=== PATIENT | male | born 1955 | race Caucasian/White ===

== ENCOUNTER 2016-07-27 17:19 | Inpatient (IN) | payer OTHER ==
[~2016-07-27] VITALS: Ht 188 cm; Wt 96.0 kg
[~2016-07-27 17:19] MED LIST: ASPI-535 PO; CARV12.579 PO; CLOP75TA27 PO; DULO30CA45 PO; IBUP800T25 PO; ISOS30TA PO; LANT3I SC; OLME40TA14 PO; PRAV40TA76 PO; SITA1TAB7 PO
[2016-07-27] MEDS ORDERED: KETOROLAC 15 MG INJ IV STA (18:01)
[2016-07-27 18:25] LABS: BASOPHIL # 0.1 10^3/ul (0.0-0.1); BASOPHILS % 0.9 % (0.0-2.0); EOSINOPHILS # 0.2 10^3/ul (0.0-0.5); EOSINOPHILS % 2.8 % (0.0-7.0); HEMATOCRIT 50.7 % (42.0-52.0); HEMOGLOBIN 17.6 g/dl (14.0-18.0); LYMPHOCYTES # 2.2 10^3/ul (0.8-2.9); LYMPHOCYTES % 27.5 % (15.0-51.0); MEAN CORPUSCULAR HGB CONC 34.8 g/dl (32.0-37.0); MEAN CORPUSCULAR VOLUME 97.8 fl (82.0-101.0); MEAN PLATELET VOLUME 8.7 fl (7.4-10.4); MONOCYTE # 0.4 10^3/ul (0.3-0.9); MONOCYTES % 5.5 % (0.0-11.0); NEUTROPHILS % 63.3 % (39.0-77.0); PLATELET COUNT 196 10^3/UL (140-440); RED BLOOD COUNT 5.18 10^6/ul (4.70-6.10); RED CELL DISTRIBUTION WIDTH 12.9 % (11.5-14.5); UNCORRECTED WBC 7.9 10^3/ul (4.8-10.8); WHITE BLOOD COUNT 7.9 10^3/ul (4.8-10.8)
[2016-07-27 18:28] LABS: CONDITION 1
[2016-07-27] MEDS ORDERED: ALPRAZOLAM 0.25 MG TAB PO ONE (18:30)
[2016-07-27] MEDS ORDERED: NITROGLYCERIN (SL) 0.4 MG TAB SL ONE (18:30)
[2016-07-27] MEDS ORDERED: ENALAPRILAT 1.25 MG INJ IV ONE (18:30)
[2016-07-27] MEDS ORDERED: ASPIRIN 81 MG TAB PO ONE (18:30)
--- NOTE | 2016-07-27 18:35 | RADRPT ---
PROCEDURE: XR Chest. CLINICAL INDICATION: Abdominal packet TECHNIQUE: Single frontal view of the chest was obtained COMPARISON: Chest x-ray 05/04/2014. FINDINGS: Heart is enlarged. Monitoring electrodes and draped across the chest. The lungs are clear. There is no pleural effusion. The bony elements are intact. No changes noted compared to the prior study . IMPRESSION: 1. Mild cardiomegaly. 2. No evidence of active cardiopulmonary disease. Stable chest compared to 05/04/2014. RPTAT:AAJJ Physician Korina Date Time Electronically viewed and signed by Jimbo Alvarado Physician on 07/27/2016 18:34 JM/
[2016-07-27 18:36] LABS: ALBUMIN 4.4 g/dl (3.3-4.9); INR 0.85; PROTIME 11.6 Sec (12.2-14.2); PT RATIO 0.9
[2016-07-27 18:37] LABS: POTASSIUM 5.1 mmol/L (3.5-5.1)
[2016-07-27 18:39] LABS: ALBUMIN/GLOBULIN RATIO 1.46; BILIRUBIN,INDIRECT 0.4 mg/dl (0-1.1); BILIRUBIN,TOTAL 0.4 mg/dl (0.2-1.3); CREATININE 1.12 mg/dl (0.61-1.24); TOTAL PROTEIN 7.4 g/dl (6.1-8.1)
[2016-07-27 18:40] LABS: CALCIUM 8.8 mg/dl (8.4-10.2)
[2016-07-27 18:42] VITALS: TEMP 98.1
[2016-07-27 18:49] LABS: TROPONIN-I 0.056 ng/ml (0.00-0.12)
[2016-07-27] MEDS ORDERED: PRAV10TA43 PO (19:34)
[2016-07-27] MEDS ORDERED: METF-382 PO (19:35)
[2016-07-27] MEDS ORDERED: VALS160T20 PO (19:35)
--- NOTE | 2016-07-27 19:37 | ERA ---
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 MILD SOB . NO DIAPHORESIS HPI 61-year-old man presents with left-sided pressure-like chest pain beginning at home while at rest and hypertension. He states his chest pain occurs on a regular basis usually associated with hypertension sometimes multiple times per week although today's discomfort was unusual in that it lasted longer and was not relieved with nitroglycerin administered at home. Patient does have a history of IN and multiple previous coronary artery stents placed. Patient denies coughing, no fevers or chills, no dizziness or loss of consciousness, no shortness of breath, no vomiting or diarrhea. ROS All systems reviewed and are negative except as per history of present illness. Medications Home Meds Reported Medications Pravastatin Sodium* (Pravastatin Sodium*) 40 Mg Tablet, 40 MG PO DAILY, TAB 05/05/14 Olmesartan Medoxomil (Benicar) 40 Mg Tablet, 40 MG PO DAILY, TAB 05/05/14 Isosorbide Mononitrate* (Imdur*) 30 Mg Tab.sr.24h, 30 MG PO DAILY, TAB 05/05/14 Clopidogrel Bisulfate (Clopidogrel) 75 Mg Tablet, 75 MG PO DAILY, TAB 05/04/14 Insulin Glargine* (Lantus*) 100 Unit/Ml Soln, 30 UNIT SC HS, EA 05/04/14 Sitagliptin Phos-Metformin Hcl (Janumet) 50-1,000 Mg Tablet, 1 TAB PO BID, TAB 05/04/14 Ibuprofen* (Ibuprofen*) 800 Mg Tab, 800 MG PO Q6H Y for PAIN, TAB 05/04/14 Duloxetine Hcl* (Cymbalta*) 30 Mg Capsule.dr, 30 MG PO DAILY, CAP 05/04/14 Carvedilol* (Carvedilol*) 12.5 Mg Tablet, 12.5 MG PO BID, TAB 05/04/14 Aspirin Ec (Aspir 81) 81 Mg Tablet.dr, 81 MG PO DAILY, TAB 05/04/14 Allergies Allergies: Coded Allergies: No Known Drug Allergy (Verified Allergy, Unknown, 07/27/16) PMhx/Soc Hypertension, coronary artery disease with previous coronary artery stenting, IN , diabetes mellitus, obesity, smoking History of Surgery: Yes Anesthesia Reaction: No Hx Neurological Disorder: No Hx Respiratory Disorders: No Hx Cardiac Disorders: Yes (HTN) Hx Psychiatric Problems: No Hx Miscellaneous Medical Probl: Yes (DM) Hx Alcohol Use: Yes Hx Substance Use: No Hx Tobacco Use: Yes Smoking Status: Current every day smoker FmHx Family History: diabetes Physical Exam Vitals Vital Signs Date Time Temp Pulse Resp B/P Pulse Ox O2 Delivery O2 Flow Rate FiO2 07/27/16 18:52 99 20 143/96 07/27/16 18:42 98.1 16 157/109 97 Room Air 07/27/16 17:26 98.1 100 20 202/121 98 Physical Exam GENERAL: Well-developed, well-nourished, well-hydrated, in no apparent distress , looks nontoxic in appearance HEENT: Moist mucous membranes, pink conjunctiva, no cervical spine tenderness or step-off deformities, no goiter, no jaundice or icterus, extraocular movements intact without pain. No submandibular induration, and no pharyngeal erythema NEURO: Alert and oriented 3, cranial nerves II through XII intact bilaterally, pupils equal round reactive to light, no focal deficits or facial asymmetry, sensation intact distally Strength 5/5 in upper and lower extremities bilaterally CARDIAC: Tachycardic and regular, no murmurs rubs or gallops LUNGS: Clear bilaterally no wheezing crackles or stridor ABDOMEN: Soft nontender, no guarding, no rigidity, no rebound, no psoas sign no obturator sign. Normoactive bowel sounds SKIN: Warm and dry to touch, no abrasions, contusions, or hematomas, no lacerations, no ecchymosis, no target lesions, and without ulcers EXTREMITIES: No clubbing cyanosis or edema, calves are bilaterally symmetrical, no Homans sign, no popliteal cord sign. Distal pulses equal and bilateral PSYCH: Normal affect without agitation or irritability Result Diagram: 07/27/16 1800 07/27/16 1800 Results 24 hrs Laboratory Tests Test 07/27/16 18:00 Alanine Aminotransferase (ALT/SGPT) 17IU/L Albumin 4.4g/dl Albumin/Globulin Ratio 1.46 Alkaline Phosphatase 75IU/L Anion Gap 20 Aspartate Amino Transf (AST/SGOT) 47IU/L B-Type Natriuretic Peptide 610PG/ML Basophils # 0.110^3/ul Basophils % 0.9% Blood Urea Nitrogen 23mg/dl Calcium Level 8.8mg/dl Carbon Dioxide Level 25mmol/L Chloride Level 100mmol/L Creatinine 1.12mg/dl Direct Bilirubin 0.00mg/dl Eosinophils # 0.210^3/ul Eosinophils % 2.8% Globulin 3.00g/dl Glucose Level 333mg/dl Hematocrit 50.7% Hemoglobin 17.6g/dl INR International Normalized Ratio 0.85 Indirect Bilirubin 0.4mg/dl Lipase 106U/L Lymphocytes # 2.210^3/ul Lymphocytes % 27.5% Mean Corpuscular Hemoglobin 34.0pg Mean Corpuscular Hemoglobin Concent 34.8g/dl Mean Corpuscular Volume 97.8fl Mean Platelet Volume 8.7fl Monocytes # 0.410^3/ul Monocytes % 5.5% Neutrophils # 5.010^3/ul Neutrophils % 63.3% Nucleated Red Blood Cells # 0.010^3/ul Nucleated Red Blood Cells % 0.0/100WBC Platelet Count 75919^3/UL Potassium Level 5.1mmol/L Prothrombin Time 11.6Sec Prothrombin Time Ratio 0.9 Red Blood Count 5.1810^6/ul Red Cell Distribution Width 12.9% Sodium Level 140mmol/L Total Bilirubin 0.4mg/dl Total Protein 7.4g/dl Troponin I 0.056ng/ml White Blood Count 7.910^3/ul Current Medications Medications (Trade) Dose Ordered Sig/Liudmila Route PRN Reason Start Time Stop Time Status Last Admin Dose Admin Ketorolac Tromethamine (Toradol) 15 mg ONCE STAT IV 07/27/16 18:01 07/27/16 18:03 DC 07/27/16 18:35 Aspirin (Aspirin) 324 mg ONCE ONCE PO 07/27/16 18:30 07/27/16 18:31 DC 07/27/16 18:33 Enalaprilat (Vasotec Iv) 1.25 mg ONCE ONCE IV 07/27/16 18:30 07/27/16 18:31 DC 07/27/16 18:37 Nitroglycerin (Nitroglycerin (Sl Tab) 0.4 Mg) 1 tab ONCE ONCE SL 07/27/16 18:30 07/27/16 18:31 DC Alprazolam (Xanax) 0.5 mg ONCE ONCE PO 07/27/16 18:30 07/27/16 18:31 DC Procedures/MDM IV line was established patient was placed on cardiac catheterization technologist rhythm strip revealed a sinus tachycardia at 100 bpm with upright P and T waves. Patient was afebrile. Patient was hypertensive and for his symptoms I administered enalapril 1.25 mg IV, Toradol 15 mg IV, aspirin 324 mg p.o., alprazolam 0.5 mg p.o., and nitroglycerin 0.4 mg sublingual EKG performed, read by me revealed a sinus tachycardia 104 bpm, normal axis, narrow QRS complex, no concerning ST elevations or depressions noted. One AP view of the chest performed, read by me reveals no acute infiltrates, normal mediastinum, sharp costophrenic and cardiac borders, no air under the diaphragm. Otherwise unremarkable chest x-ray. CBC was unremarkable, blood sugar elevated at 333, liver function tests were normal, troponin was negative. Patient will be admitted to telemetry setting for continued medical management cardiology consultation. Departure Diagnosis: Primary Impression: Chest pain Qualified Code: R07.9 - Chest pain, unspecified type Additional Impressions: Hypertension Qualified Code: I10 - Essential hypertension Hyperglycemia Condition: RADHA Price MD Jul 27, 2016 19:37
--- NOTE | 2016-07-27 20:27 | HP ---
Date/Time of Note Date/Time of Note DATE: 07/27/16 TIME: 20:10 Assessment/Plan VTE Prophylaxis VTE Prophylaxis Intervention: LMWH Lines/Catheters IV Catheter Type (from Nrs): Saline Lock Assessment/Plan Assessment/Plan PROBLEMS 1. Chest pain r/o ACS 2. Uncontrolled Diabetes type 2 3. Accelerated HTN 4. Known Multivessel CAD s/p multiple PCI in the past 5. Ongoing tobacco abuse 6. Dyslipidemia PLAN: admit telemetry Complete ACS r/o with cardiac enzymes / 2D echo / cardiology consult. Improve BP control / resume home meds / titrate / add BB and also PRNs Carb controlled diet / SSI / home lantus / hold metformin in anticipation of possible cardiology intervention Escalate statin therapy / continue Plavix and ASA Tobacco cessation counselling done and will continue to be reinforced throughout hospitalization. Pain control / supportive care PROPHYLAXIS: Pepcid / Lovenox Eval time: 45mins HPI/ROS Admit Date/Time Admit Date/Time 07/27/16 Hx of Present Illness PRESENTING COMPLAINT: chest pain HISTORY OF PRESENTING COMPLAINT: 61 yo M with a hx of HTN and CAD s/p multiple PCI in the past who presents with intermittent L sided chest pain that has prgoressed to constant and is associated with some numbness and occasional SOB that has slowly been worsening and today's episode did not respond to nitroglycerin therapy and so he came to be seen. he is currently pain free however. denied fever, passing out or cough. ROS 12 point review if systems was done and pertinent findings are as noted. PMH/Family/Social Past Medical History Medical History: diabetes, hypertension Family History Significant Family History: heart disease, hypertension Social History Alcohol Use: occasionally Smoking Status: Current every day smoker Drug Use: none Exam/Review of Systems Vital Signs Vitals VS - Last 72 Hours, by Label Date Time Temp Pulse Resp B/P Pulse Ox O2 Delivery O2 Flow Rate FiO2 07/27/16 18:52 99 20 143/96 07/27/16 18:42 98.1 16 157/109 97 Room Air 07/27/16 17:26 98.1 100 20 202/121 98 Vital Signs Date Time Temp Pulse Resp B/P Pulse Ox O2 Delivery O2 Flow Rate FiO2 07/27/16 18:52 99 20 143/96 07/27/16 18:42 98.1 97 Room Air Exam Constitutional: alert, oriented, No distress Head: atraumatic, normocephalic Eyes: PERRL, No icteric ENMT: mucosa pink and moist Neck: non-tender, supple Respiratory: clear to auscultation, normal air movement Cardiovascular: regular rate and rhythm, No murmurs/extra sounds Gastrointestinal: bowel sounds, non-tender, soft Extremities: No edema Neurological: nl speech, nl strength, No confused Skin: No rash or lesions Labs Result Diagram: 07/27/16 1800 07/27/16 1800 Procedures Procedures Laboratory Tests Test 07/27/16 18:00 Alanine Aminotransferase (ALT/SGPT) 17IU/L Albumin 4.4g/dl Albumin/Globulin Ratio 1.46 Alkaline Phosphatase 75IU/L Anion Gap 20 Aspartate Amino Transf (AST/SGOT) 47IU/L B-Type Natriuretic Peptide 610PG/ML Basophils # 0.110^3/ul Basophils % 0.9% Blood Urea Nitrogen 23mg/dl Calcium Level 8.8mg/dl Carbon Dioxide Level 25mmol/L Chloride Level 100mmol/L Creatinine 1.12mg/dl Direct Bilirubin 0.00mg/dl Eosinophils # 0.210^3/ul Eosinophils % 2.8% Globulin 3.00g/dl Glucose Level 333mg/dl Hematocrit 50.7% Hemoglobin 17.6g/dl INR International Normalized Ratio 0.85 Indirect Bilirubin 0.4mg/dl Lipase 106U/L Lymphocytes # 2.210^3/ul Lymphocytes % 27.5% Mean Corpuscular Hemoglobin 34.0pg Mean Corpuscular Hemoglobin Concent 34.8g/dl Mean Corpuscular Volume 97.8fl Mean Platelet Volume 8.7fl Monocytes # 0.410^3/ul Monocytes % 5.5% Neutrophils # 5.010^3/ul Neutrophils % 63.3% Nucleated Red Blood Cells # 0.010^3/ul Nucleated Red Blood Cells % 0.0/100WBC Platelet Count 29266^3/UL Potassium Level 5.1mmol/L Prothrombin Time 11.6Sec Prothrombin Time Ratio 0.9 Red Blood Count 5.1810^6/ul Red Cell Distribution Width 12.9% Sodium Level 140mmol/L Total Bilirubin 0.4mg/dl Total Protein 7.4g/dl Troponin I 0.056ng/ml White Blood Count 7.910^3/ul ER INTERVENTIONS Medications (Trade) Dose Ordered Sig/Liudmila Route PRN Reason Start Time Stop Time Status Last Admin Dose Admin Ketorolac Tromethamine (Toradol) 15 mg ONCE STAT IV 07/27/16 18:01 07/27/16 18:03 DC 07/27/16 18:35 15 MG Aspirin (Aspirin) 324 mg ONCE ONCE PO 07/27/16 18:30 07/27/16 18:31 DC 07/27/16 18:33 324 MG Enalaprilat (Vasotec Iv) 1.25 mg ONCE ONCE IV 07/27/16 18:30 07/27/16 18:31 DC 07/27/16 18:37 1.25 MG Nitroglycerin (Nitroglycerin (Sl Tab) 0.4 Mg) 1 tab ONCE ONCE SL 07/27/16 18:30 07/27/16 18:31 DC Alprazolam (Xanax) 0.5 mg ONCE ONCE PO 07/27/16 18:30 07/27/16 18:31 DC YANG BRITTON Jul 27, 2016 20:20
[2016-07-27] MEDS ORDERED: ONDANSETRON 4 MG INJ IV PRN (20:30)
[2016-07-27] MEDS ORDERED: morphine 2 MG INJ IV PRN (20:30)
[2016-07-27] MEDS ORDERED: SOD CHLORIDE 0.9% 1,000 ML IV SCH (20:30)
[2016-07-27] MEDS ORDERED: GLUCAGON 1 MG INJ IM PRN (21:00)
[2016-07-27] MEDS ORDERED: GLUCOSE GEL 15 GRAM TUBE BUCCAL PRN (21:00)
[2016-07-27] MEDS ORDERED: GLUCOSE GEL 15 GRAM TUBE PO PRN ×2 (21:00)
[2016-07-27] MEDS ORDERED: DEXTROSE 50% 50 ML SYRINGE IV PRN ×2 (21:00)
[2016-07-27] MEDS: METOPROLOL 25 MG TAB PO SCH (21:20)
[2016-07-27] MEDS: ATORVASTATIN 40 MG TAB PO SCH (21:20)
[2016-07-27] MEDS: INSULIN GLARGINE [LANtus] 3 ML PEN SC SCH (21:22)
[2016-07-27] MEDS: INSULIN ASPART [NOVOLOG] 3 ML PEN SC SCH (21:24)
[2016-07-27] MEDS ORDERED: VALSARTAN 80 MG TAB PO SCH (21:30)
[2016-07-27] MEDS: DOCUSATE SODIUM 100 MG CAP PO SCH (21:32)
[2016-07-27] MEDS: FAMOTIDINE 20 MG TAB PO SCH (21:32)
[2016-07-28] VITALS (11 sets, daily range): BP systolic 131–165; BP diastolic 69–98; PULSE 69–87; RESP 16–22; Ht 188 cm; Wt 96.0 kg
[2016-07-28 00:12] LABS: CK-MB 2.3 ng/ml (0.0-2.4)
[2016-07-28 00:18] LABS: TROPONIN-I 0.231 ng/ml (0.00-0.12)
[2016-07-28] MEDS: ACCUCHECK AT 2AM (Patients on SS coverage) XX SCH (02:00)
[2016-07-28 07:58] LABS: BASOPHILS % 0.6 % (0.0-2.0); EOSINOPHILS # 0.2 10^3/ul (0.0-0.5); EOSINOPHILS % 3.6 % (0.0-7.0); HEMATOCRIT 44.1 % (42.0-52.0); HEMOGLOBIN 15.3 g/dl (14.0-18.0); LYMPHOCYTES # 2.4 10^3/ul (0.8-2.9); LYMPHOCYTES % 35.9 % (15.0-51.0); MEAN CORPUSCULAR HEMOGLOBIN 33.9 pg (29.0-33.0); MEAN CORPUSCULAR HGB CONC 34.8 g/dl (32.0-37.0); MEAN CORPUSCULAR VOLUME 97.6 fl (82.0-101.0); MEAN PLATELET VOLUME 8.2 fl (7.4-10.4); MONOCYTE # 0.6 10^3/ul (0.3-0.9); MONOCYTES % 8.1 % (0.0-11.0); NEUTROPHIL # 3.5 10^3/ul (1.6-7.5); NEUTROPHILS % 51.8 % (39.0-77.0); PLATELET COUNT 167 10^3/UL (140-440); RED BLOOD COUNT 4.52 10^6/ul (4.70-6.10); RED CELL DISTRIBUTION WIDTH 12.7 % (11.5-14.5); UNCORRECTED WBC 6.8 10^3/ul (4.8-10.8); WHITE BLOOD COUNT 6.8 10^3/ul (4.8-10.8)
[2016-07-28 08:06] LABS: CONDITION 1
[2016-07-28 08:08] LABS: ALBUMIN 3.4 g/dl (3.3-4.9); POTASSIUM 4.4 mmol/L (3.5-5.1)
[2016-07-28 08:10] LABS: CREATININE 1.05 mg/dl (0.61-1.24)
[2016-07-28 08:11] LABS: BILIRUBIN,INDIRECT 0.6 mg/dl (0-1.1); BILIRUBIN,TOTAL 0.6 mg/dl (0.2-1.3); CALCIUM 8.8 mg/dl (8.4-10.2); TOTAL PROTEIN 5.7 g/dl (6.1-8.1)
[2016-07-28 08:12] LABS: CHOL/HDL RATIO 5.1 RATIO; MAGNESIUM 1.9 mg/dl (1.7-2.5)
[2016-07-28 08:25] LABS: CK-MB 3.21 ng/ml (0.0-2.4)
[2016-07-28 08:26] LABS: TROPONIN-I 0.457 ng/ml (0.00-0.12)
[2016-07-28 08:41] LABS: THYROID STIMULATING HORMONE 0.711 MIU/L (0.465-4.680)
[2016-07-28] MEDS: VALSARTAN 160 MG TAB PO SCH (08:43)
[2016-07-28] MEDS: DOCUSATE SODIUM 100 MG CAP PO SCH ×2 (08:43→21:00)
[2016-07-28] MEDS: FAMOTIDINE 20 MG TAB PO SCH ×2 (08:43→22:27)
[2016-07-28] MEDS: ASPIRIN (EC) 81 MG TAB PO SCH (08:43)
[2016-07-28] MEDS: CLOPIDOGREL 75 MG TAB PO SCH (08:43)
[2016-07-28] MEDS: METOPROLOL 25 MG TAB PO SCH (08:44)
[2016-07-28] MEDS: INSULIN ASPART [NOVOLOG] 3 ML PEN SC SCH ×4 (08:46→22:29)
[2016-07-28] MEDS ORDERED: ENOXAPARIN 40 MG/0.4 ML SYG SC SCH (09:00)
--- NOTE | 2016-07-28 10:55 | PN ---
Date/Time of Note Date/Time of Note DATE: 07/28/16 TIME: 10:53 Assessment/Plan VTE Prophylaxis VTE Prophylaxis Intervention: LMWH Lines/Catheters IV Catheter Type (from Nrsg): Peripheral IV Assessment/Plan Assessment/Plan 1. acute NSTEMI with H/o CAD and Multiple PCI in past 2. Uncontrolled Diabetes type 2 3. Accelerated HTN 4. Ongoing tobacco abuse 6. Dyslipidemia PLAN: Cardiology consult Dr.Ashish blue to see pt ASA, plavix, MTP, Lipitor NTG prn chest pain ECHO has been done Lovenox for DVT prophylaxis Subjective 24 Hr Interval Summary Free Text/Dictation pt came with chest pain, tropnin positive, currenlty CP free Exam/Review of Systems Vital Signs Vitals Vital Signs Date Time Temp Pulse Resp B/P Pulse Ox O2 Delivery O2 Flow Rate FiO2 07/28/16 08:30 76 07/28/16 04:55 98.0 22 131/69 96 07/27/16 22:41 Room Air Intake and Output 07/27/16 07/27/16 07/28/16 15:00 23:00 07:00 Intake Total 525 ml Balance 525 ml Exam Constitutional: alert, oriented, No distress Head: atraumatic, normocephalic Eyes: PERRL, No icteric ENMT: mucosa pink and moist Neck: non-tender, supple Respiratory: clear to auscultation, normal air movement Cardiovascular: regular rate and rhythm, No murmurs/extra sounds Gastrointestinal: bowel sounds, non-tender, soft Extremities: No edema Neurological: nl speech, nl strength, No confused Skin: No rash or lesions Results Result Diagram: 07/28/16 0649 07/28/16 0649 Results 24 hrs Laboratory Tests Test 07/27/16 18:00 07/27/16 21:10 07/27/16 23:00 07/28/16 02:14 Alanine Aminotransferase (ALT/SGPT) 17 Albumin 4.4 Albumin/Globulin Ratio 1.46 Alkaline Phosphatase 75 Anion Gap 20 H Aspartate Amino Transf (AST/SGOT) 47 H B-Type Natriuretic Peptide 610 H Basophils # 0.1 Basophils % 0.9 Blood Urea Nitrogen 23 H Calcium Level 8.8 Carbon Dioxide Level 25 Chloride Level 100 Creatinine 1.12 Direct Bilirubin 0.00 Eosinophils # 0.2 Eosinophils % 2.8 Globulin 3.00 Glucose Level 333 H Hematocrit 50.7 # Hemoglobin 17.6 # INR International Normalized Ratio 0.85 Indirect Bilirubin 0.4 Lipase 106 Lymphocytes # 2.2 Lymphocytes % 27.5 Mean Corpuscular Hemoglobin 34.0 H Mean Corpuscular Hemoglobin Concent 34.8 Mean Corpuscular Volume 97.8 Mean Platelet Volume 8.7 # Monocytes # 0.4 Monocytes % 5.5 Neutrophils # 5.0 Neutrophils % 63.3 Nucleated Red Blood Cells # 0.0 Nucleated Red Blood Cells % 0.0 Platelet Count 196 Potassium Level 5.1 Prothrombin Time 11.6 L Prothrombin Time Ratio 0.9 Red Blood Count 5.18 Red Cell Distribution Width 12.9 Sodium Level 140 Total Bilirubin 0.4 Total Protein 7.4 Troponin I 0.056 0.231 *H White Blood Count 7.9 # Bedside Glucose 310 H 292 H Creatine Kinase 80 Creatine Kinase Index 2.9 Creatinine Kinase MB (Mass) 2.30 Test 07/28/16 06:49 07/28/16 07:58 Alanine Aminotransferase (ALT/SGPT) 24 Albumin 3.4 # Alkaline Phosphatase 54 Anion Gap 11 # Aspartate Amino Transf (AST/SGOT) 20 # Basophils # 0.0 Basophils % 0.6 Blood Urea Nitrogen 28 H Calcium Level 8.8 Carbon Dioxide Level 29 Chloride Level 104 Cholesterol Level 210 H Cholesterol/HDL Ratio 5.1 Creatine Kinase 65 Creatine Kinase Index 4.9 Creatinine 1.05 Creatinine Kinase MB (Mass) 3.21 H Direct Bilirubin 0.00 Eosinophils # 0.2 Eosinophils % 3.6 Glucose Level 120 # HDL Cholesterol 41 Hematocrit 44.1 Hemoglobin 15.3 Hemoglobin A1c 8.8 H Indirect Bilirubin 0.6 LDL Cholesterol, Calculated 140 Lymphocytes # 2.4 Lymphocytes % 35.9 Magnesium Level 1.9 Mean Corpuscular Hemoglobin 33.9 H Mean Corpuscular Hemoglobin Concent 34.8 Mean Corpuscular Volume 97.6 Mean Platelet Volume 8.2 Monocytes # 0.6 Monocytes % 8.1 Neutrophils # 3.5 Neutrophils % 51.8 Nucleated Red Blood Cells # 0.0 Nucleated Red Blood Cells % 0.0 Platelet Count 167 Potassium Level 4.4 Red Blood Count 4.52 L Red Cell Distribution Width 12.7 Sodium Level 140 Thyroid Stimulating Hormone (TSH) 0.711 Total Bilirubin 0.6 Total Protein 5.7 #L Triglycerides Level 143 Troponin I 0.457 *H White Blood Count 6.8 Bedside Glucose 165 Medications Medications Current Medications Aspirin (Halfprin) 81 mg DAILY PO Last administered on 07/28/16 08:43; Admin Dose 81 MG; Start 07/28/16 at 09:00 Clopidogrel Bisulfate (plaVIX) 75 mg DAILY PO Last administered on 07/28/16 08: 43; Admin Dose 75 MG; Start 07/28/16 at 09:00 Insulin Glargine (Lantus) 30 unit HS SC Last administered on 07/27/16 21:22; Admin Dose 30 UNIT; Start 07/27/16 at 21:00 Valsartan (Diovan) 160 mg DAILY PO Last administered on 07/28/16 08:43; Admin Dose 160 MG; Start 07/28/16 at 09:00 Atorvastatin Calcium (Lipitor) 40 mg HS PO Last administered on 07/27/16 21:20 ; Admin Dose 40 MG; Start 07/27/16 at 21:00 Morphine Sulfate (morphine) 2 mg Q4H PRN IV pain; Start 07/27/16 at 20:30 Ondansetron HCl (Zofran Inj) 4 mg Q6H PRN IV NAUSEA AND/OR VOMITING; Start 07/27 at 20:30 Docusate Sodium (Colace) 100 mg BID PO Last administered on 07/28/16 08:43; Admin Dose 100 MG; Start 07/27/16 at 21:00 Famotidine (Pepcid) 20 mg BID PO Last administered on 07/28/16 08:43; Admin Dose 20 MG; Start 07/27/16 at 21:00 Enoxaparin Sodium (Lovenox) 40 mg DAILY SC Last administered on 07/28/16 08:47 ; Admin Dose 40 MG; Start 07/28/16 at 09:00 Metoprolol Tartrate (Lopressor) 25 mg BID PO Last administered on 07/28/16 08: 44; Admin Dose 25 MG; Start 07/27/16 at 21:00 Hydralazine HCl (Apresoline) 10 mg Q6H PRN IV sbp >160mmhg; Start 07/27/16 at 20 :30 Diagnostic Test (Pha) (Accucheck) 1 ea 02 XX ; Start 07/28/16 at 02:00 Miscellaneous Information 1 ea NOTE XX ; Start 07/27/16 at 21:00 Glucose (Glutose) 15 gm Q15M PRN PO DECREASED GLUCOSE; Start 07/27/16 at 21:00 Glucose (Glutose) 22.5 gm Q15M PRN PO DECREASED GLUCOSE; Start 07/27/16 at 21:00 Dextrose (D50w Syringe) 25 ml Q15M PRN IV DECREASED GLUCOSE; Start 07/27/16 at 21:00 Dextrose (D50w Syringe) 50 ml Q15M PRN IV DECREASED GLUCOSE; Start 07/27/16 at 21:00 Glucagon (Glucagen) 1 mg Q15M PRN IM DECREASED GLUCOSE; Start 07/27/16 at 21:00 Glucose (Glutose) 15 gm Q15M PRN BUCCAL DECREASED GLUCOSE; Start 07/27/16 at 21: 00 LUZMA CARLSON MD Jul 28, 2016 10:55
--- NOTE | 2016-07-28 11:39 | RADRPT ---
Echocardiogram Report Patient Name: THOMAS REGAN Gender: Male Date: 1955 Study Date: 28-Jul-2016 Handle Sewer: Ash Artis [facility], [place] Location: [id number] Ref. Physician: YANG BRITTON Quality: Good Procedures: Transthoracic echocardiogram with complete 2D, M-Mode, and doppler examination. Indications: Chest Pain. 2D/M Mode Doppler Measurement Value Normal Ranges Measurement Value Normal Ranges LVIDd 2D 4.6 3.5 - 5.6 cm AV Peak Carlos Manuel 1.0 m/sec LVIDs 2D 3.2 2.1 - 4.1 cm AV Peak PG 4.0 mmHg FS 2D 30.0 % LVOT Peak Carlos Manuel 0.7 m/sec LVPWd 2D 1.1 0.6 - 1.1 cm LVOT Peak PG 2.0 mmHg IVSd 2D 1.1 0.6 - 1.1 cm MV E Peak Carlos Manuel 0.6 m/sec IVS/LVPW 2D 1.0 MV A Peak Carlos Manuel 0.6 m/sec AoR Diam 2D 3.7 2.0 - 3.7 cm MV E/A 0.9 LA/Ao 2D 1 0 - 1 MV Decel Time 180 msec EDV 2D 95.4 cm3 MV E/A 0.9 ESV 2D 32.8 cm3 TR Peak Carlos Manuel 2.0 m/sec LA Dimen 2D 4.2 2.3 - 4.0 cm TR Peak PG 16.0 mmHg RVSP 24.0 mmHg Findings Left Ventricle: Normal left ventricular systolic function. Normal left ventricular cavity size. Mild concentric left ventricular hypertrophy. Ejection fraction is visually estimated at 55 %. Tissue Doppler/Mitral Doppler indices are consistent with impaired relaxation (Stage I diastolic dysfunction). These segments of the LV are hypokinetic possible mild hypokinesis of inferior base. Right Ventricle: Normal right ventricular size. Normal right ventricular systolic function. Left Atrium: Upper limit of normal left atrial size. Right Atrium: The right atrium is normal in size. Mitral Valve: Mitral valve leaflets appear mildly thickened. Mild mitral annular calcification. Mild mitral valve regurgitation. Aortic Valve: No significant aortic stenosis or insufficiency. Aortic sclerosis without stenosis. Tricuspid Valve: Normal appearance of the tricuspid valve. Unable to obtain RVSP due to minimal presence of tricuspid regurgitation. There is trace tricuspid regurgitation. Pulmonic Valve: Pulmonic valve not well visualized. No evidence of pulmonic regurgitation. Pericardium: Normal pericardium with no significant pericardial effusion. Aorta: Normal aortic root. IVC: Dilated IVC with respiratory collapse consistent with elevated right atrial pressure. Conclusions Normal left ventricular systolic function. Normal left ventricular cavity size. Mild concentric left ventricular hypertrophy. Ejection fraction is visually estimated at 55 %. Tissue Doppler/Mitral Doppler indices are consistent with impaired relaxation (Stage I diastolic dysfunction). These segments of the LV are hypokinetic possible mild hypokinesis of inferior base. Normal right ventricular size. Normal right ventricular systolic function. Upper limit of normal left atrial size. No significant aortic stenosis or insufficiency. Aortic sclerosis without stenosis. Dilated IVC with respiratory collapse consistent with elevated right atrial pressure. No Vegetation, masses, or thrombi seen. Electronically Signed By: Reed Wright 28-Jul-2016 11:39:18 -0800 Patient Name: THOMAS REGAN Study Date: 28-Jul-2016 [id number]
--- NOTE | 2016-07-28 15:10 | CONS ---
Date/Time of Note Date/Time of Note DATE: 07/28/16 TIME: 14:55 Assessment/Plan Assessment/Plan Chief Complaint/Hosp Course Impression: # CAD s/p PCI now with NSTEMI. no acute ekg changes, still off/on cp. echo reviewed, normal fxn. ? inf basal wma. will need LHC with possible PCI. plan for 12 noon tomorrow. npo after 7am - con asa/plavix - cont statin - switch to coreg given elevated bp, titrate as needed - sln as needed for further pain, if uncontrolled start nitro gtt - LHC/PCI tomorrow at noon # HTN- uncontrolled - cont valsartan - switch coreg - prn hydralazine po for sbp > 180 # DM2- per primary team # HLD- - on statin - check lipids # smoking- cessation recommended d/w pt x 5 mins. understands risks of restenosis, recurrent acs if cont smoking Problems: Consultation Date/Type/Reason Admit Date/Time 07/27/16 Date of Consultation: Jul 28, 2016 Type of Consultation: Cardiology Reason for Consultation NSTEMI Referring Provider: LUZMA CARLSON MD Hx of Present Illness Mr. Owusu is a 61 y.o. yoruba man, translation provided by family and hospital staff. Pt with h/o of CAD s/p multi vessel PCI to proximal LAD at [facility] 2010, and mid LAD /distal LCx 2013 by me at [facility]. Pt states did well post PCI, but has had progressive exertional L sided chest pain x 1 mo. pain improved with rest after 5-10 mins or with sln. no n/v/sob/dizziness/fainting. no pnd, orthopnea, edema. does have intermittent pain at night too, otherwise no pain with rest. pt [place] and had progress chest pain, more severe 8/10. pt states presented to [facility] ED. pt found to have severe bp elevation 220s, improved with medication with improved chest pain. pt reports still having on/off mild 2/10 chest pain. pt reports compliance with medications, and no drug use. does continue to smoke daily. last pcp visit 3 mo ago he states with nrml bp he states. has did not f/u in clinic post PCI in 2013. ekg reviewed: NSR, LVH, I, aVL with twi/st depression ? repol abnl this is new from previous. has ant j point elevation unchanged. 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 Family History Significant Family History: heart disease Social History Alcohol Use: occasionally Smoking Status: Current every day smoker Drug Use: none Exam/Review of Systems Vital Signs Vitals Vital Signs Date Time Temp Pulse Resp B/P Pulse Ox O2 Delivery O2 Flow Rate FiO2 07/28/16 12:29 84 07/28/16 04:55 98.0 22 131/69 96 07/27/16 22:41 Room Air Intake and Output 07/27/16 07/27/16 07/28/16 15:00 23:00 07:00 Intake Total 525 ml Balance 525 ml Exam Constitutional: alert, oriented Psych: nl mood/affect, no complaints Head: atraumatic, normocephalic Eyes: nl conjunctiva, nl lids ENMT: mucosa pink and moist, nl external ears & nose Neck: non-tender, supple, No jvd Respiratory: clear to auscultation, normal air movement Cardiovascular: nl pulses, regular rate and rhythm, No S3, No S4, No bruits, No edema, No irregular rhythm, No jugular venous distention (JVD), No systolic murmur Gastrointestinal: non-tender, soft Musculoskeletal: nl extremities to inspection, nl gait and stance Extremities: normal pulses, other (2+ r radial, normal allens, 2+ r femoral) Neurological: 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 II-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 intact Skin: nl turgor Results Result Diagram: 07/28/16 0649 07/28/16 0649 Results 24 hrs Laboratory Tests Test 07/27/16 18:00 07/27/16 21:10 07/27/16 23:00 07/28/16 02:14 Alanine Aminotransferase (ALT/SGPT) 17 Albumin 4.4 Albumin/Globulin Ratio 1.46 Alkaline Phosphatase 75 Anion Gap 20 H Aspartate Amino Transf (AST/SGOT) 47 H B-Type Natriuretic Peptide 610 H Basophils # 0.1 Basophils % 0.9 Blood Urea Nitrogen 23 H Calcium Level 8.8 Carbon Dioxide Level 25 Chloride Level 100 Creatinine 1.12 Direct Bilirubin 0.00 Eosinophils # 0.2 Eosinophils % 2.8 Globulin 3.00 Glucose Level 333 H Hematocrit 50.7 # Hemoglobin 17.6 # INR International Normalized Ratio 0.85 Indirect Bilirubin 0.4 Lipase 106 Lymphocytes # 2.2 Lymphocytes % 27.5 Mean Corpuscular Hemoglobin 34.0 H Mean Corpuscular Hemoglobin Concent 34.8 Mean Corpuscular Volume 97.8 Mean Platelet Volume 8.7 # Monocytes # 0.4 Monocytes % 5.5 Neutrophils # 5.0 Neutrophils % 63.3 Nucleated Red Blood Cells # 0.0 Nucleated Red Blood Cells % 0.0 Platelet Count 196 Potassium Level 5.1 Prothrombin Time 11.6 L Prothrombin Time Ratio 0.9 Red Blood Count 5.18 Red Cell Distribution Width 12.9 Sodium Level 140 Total Bilirubin 0.4 Total Protein 7.4 Troponin I 0.056 0.231 *H White Blood Count 7.9 # Bedside Glucose 310 H 292 H Creatine Kinase 80 Creatine Kinase Index 2.9 Creatinine Kinase MB (Mass) 2.30 Test 07/28/16 06:49 07/28/16 07:58 07/28/16 12:01 Alanine Aminotransferase (ALT/SGPT) 24 Albumin 3.4 # Alkaline Phosphatase 54 Anion Gap 11 # Aspartate Amino Transf (AST/SGOT) 20 # Basophils # 0.0 Basophils % 0.6 Blood Urea Nitrogen 28 H Calcium Level 8.8 Carbon Dioxide Level 29 Chloride Level 104 Cholesterol Level 210 H Cholesterol/HDL Ratio 5.1 Creatine Kinase 65 Creatine Kinase Index 4.9 Creatinine 1.05 Creatinine Kinase MB (Mass) 3.21 H Direct Bilirubin 0.00 Eosinophils # 0.2 Eosinophils % 3.6 Glucose Level 120 # HDL Cholesterol 41 Hematocrit 44.1 Hemoglobin 15.3 Hemoglobin A1c 8.8 H Indirect Bilirubin 0.6 LDL Cholesterol, Calculated 140 Lymphocytes # 2.4 Lymphocytes % 35.9 Magnesium Level 1.9 Mean Corpuscular Hemoglobin 33.9 H Mean Corpuscular Hemoglobin Concent 34.8 Mean Corpuscular Volume 97.6 Mean Platelet Volume 8.2 Monocytes # 0.6 Monocytes % 8.1 Neutrophils # 3.5 Neutrophils % 51.8 Nucleated Red Blood Cells # 0.0 Nucleated Red Blood Cells % 0.0 Platelet Count 167 Potassium Level 4.4 Red Blood Count 4.52 L Red Cell Distribution Width 12.7 Sodium Level 140 Thyroid Stimulating Hormone (TSH) 0.711 Total Bilirubin 0.6 Total Protein 5.7 #L Triglycerides Level 143 Troponin I 0.457 *H White Blood Count 6.8 Bedside Glucose 165 194 Medications Medications Current Medications Aspirin (Halfprin) 81 mg DAILY PO Last administered on 07/28/16 08:43; Admin Dose 81 MG; Start 07/28/16 at 09:00 Clopidogrel Bisulfate (plaVIX) 75 mg DAILY PO Last administered on 07/28/16 08: 43; Admin Dose 75 MG; Start 07/28/16 at 09:00 Insulin Glargine (Lantus) 30 unit HS SC Last administered on 07/27/16 21:22; Admin Dose 30 UNIT; Start 07/27/16 at 21:00 Valsartan (Diovan) 160 mg DAILY PO Last administered on 07/28/16 08:43; Admin Dose 160 MG; Start 07/28/16 at 09:00 Atorvastatin Calcium (Lipitor) 40 mg HS PO Last administered on 07/27/16 21:20 ; Admin Dose 40 MG; Start 07/27/16 at 21:00 Morphine Sulfate (morphine) 2 mg Q4H PRN IV pain; Start 07/27/16 at 20:30 Ondansetron HCl (Zofran Inj) 4 mg Q6H PRN IV NAUSEA AND/OR VOMITING; Start 07/27 at 20:30 Docusate Sodium (Colace) 100 mg BID PO Last administered on 07/28/16 08:43; Admin Dose 100 MG; Start 07/27/16 at 21:00 Famotidine (Pepcid) 20 mg BID PO Last administered on 07/28/16 08:43; Admin Dose 20 MG; Start 07/27/16 at 21:00 Enoxaparin Sodium (Lovenox) 40 mg DAILY SC Last administered on 07/28/16 08:47 ; Admin Dose 40 MG; Start 07/28/16 at 09:00 Metoprolol Tartrate (Lopressor) 25 mg BID PO Last administered on 07/28/16 08: 44; Admin Dose 25 MG; Start 07/27/16 at 21:00 Hydralazine HCl (Apresoline) 10 mg Q6H PRN IV sbp >160mmhg; Start 07/27/16 at 20 :30 Diagnostic Test (Pha) (Accucheck) 1 ea 02 XX ; Start 07/28/16 at 02:00 Miscellaneous Information 1 ea NOTE XX ; Start 07/27/16 at 21:00 Glucose (Glutose) 15 gm Q15M PRN PO DECREASED GLUCOSE; Start 07/27/16 at 21:00 Glucose (Glutose) 22.5 gm Q15M PRN PO DECREASED GLUCOSE; Start 07/27/16 at 21:00 Dextrose (D50w Syringe) 25 ml Q15M PRN IV DECREASED GLUCOSE; Start 07/27/16 at 21:00 Dextrose (D50w Syringe) 50 ml Q15M PRN IV DECREASED GLUCOSE; Start 07/27/16 at 21:00 Glucagon (Glucagen) 1 mg Q15M PRN IM DECREASED GLUCOSE; Start 07/27/16 at 21:00 Glucose (Glutose) 15 gm Q15M PRN BUCCAL DECREASED GLUCOSE; Start 07/27/16 at 21: 00 Procedures Procedures cxr images reviewed: no acute abnl TORO AVELAR Jul 28, 2016 15:05
[2016-07-28] MEDS ORDERED: NACL 0.9% 3 ML SYG IV SCH (15:30)
[2016-07-28] MEDS: ENOXAPARIN 100 MG/ML SYG SC SCH (16:07)
[2016-07-28] MEDS: ATORVASTATIN 40 MG TAB PO SCH (22:27)
[2016-07-28] MEDS: INSULIN GLARGINE [LANtus] 3 ML PEN SC SCH (22:30)
[2016-07-29] VITALS (20 sets, daily range): BP systolic 128–179; BP diastolic 88–110; PULSE 68–85; RESP 12–25
[2016-07-29] MEDS: ACCUCHECK AT 2AM (Patients on SS coverage) XX SCH (02:00)
[2016-07-29] MEDS: ENOXAPARIN 100 MG/ML SYG SC SCH ×2 (04:21→08:29)
[2016-07-29 08:26] LABS: BASOPHILS % 0.5 % (0.0-2.0); EOSINOPHILS # 0.3 10^3/ul (0.0-0.5); EOSINOPHILS % 2.9 % (0.0-7.0); HEMATOCRIT 48.9 % (42.0-52.0); HEMOGLOBIN 17.1 g/dl (14.0-18.0); LYMPHOCYTES # 2.5 10^3/ul (0.8-2.9); LYMPHOCYTES % 28.3 % (15.0-51.0); MEAN CORPUSCULAR HEMOGLOBIN 34.2 pg (29.0-33.0); MEAN CORPUSCULAR HGB CONC 34.9 g/dl (32.0-37.0); MEAN CORPUSCULAR VOLUME 97.9 fl (82.0-101.0); MEAN PLATELET VOLUME 8.8 fl (7.4-10.4); MONOCYTE # 0.5 10^3/ul (0.3-0.9); MONOCYTES % 5.8 % (0.0-11.0); NEUTROPHIL # 5.5 10^3/ul (1.6-7.5); NEUTROPHILS % 62.5 % (39.0-77.0); PLATELET COUNT 157 10^3/UL (140-440); RED BLOOD COUNT 4.99 10^6/ul (4.70-6.10); RED CELL DISTRIBUTION WIDTH 13.1 % (11.5-14.5); UNCORRECTED WBC 8.9 10^3/ul (4.8-10.8); WHITE BLOOD COUNT 8.9 10^3/ul (4.8-10.8)
[2016-07-29] MEDS: FAMOTIDINE 20 MG TAB PO SCH ×2 (08:28→20:32)
[2016-07-29] MEDS: CLOPIDOGREL 75 MG TAB PO SCH (08:28)
[2016-07-29] MEDS: DOCUSATE SODIUM 100 MG CAP PO SCH ×2 (08:28→20:32)
[2016-07-29] MEDS: ASPIRIN (EC) 81 MG TAB PO SCH (08:28)
[2016-07-29] MEDS: VALSARTAN 160 MG TAB PO SCH (08:29)
[2016-07-29] MEDS: INSULIN ASPART [NOVOLOG] 3 ML PEN SC SCH ×4 (08:30→20:38)
[2016-07-29 08:35] LABS: CONDITION 1
[2016-07-29 08:40] LABS: CREATININE 0.92 mg/dl (0.61-1.24)
[2016-07-29 08:41] LABS: CALCIUM 8.8 mg/dl (8.4-10.2)
[2016-07-29] MEDS ORDERED: MIDAZOLAM 1 MG/ML 2 ML INJ ONE (11:18)
[2016-07-29] MEDS ORDERED: VERAPAMIL 5 MG INJ ONE (11:18)
[2016-07-29] MEDS ORDERED: HEPARIN 1000 UNITS/ML 10 ML INJ ONE (11:18)
[2016-07-29] MEDS ORDERED: FENTAnyl 50 MCG/ML VIAL ONE (11:18)
[2016-07-29] MEDS ORDERED: IODIXANOL LOCM 100 ML BTL ONE (11:18)
[2016-07-29] MEDS ORDERED: NITROGLYCERIN (IC) 100 MCG/ML INJ ONE (11:18)
[2016-07-29] MEDS ORDERED: LIDOCAINE 1% (MDV) 20 ML INJ ONE (11:18)
[2016-07-29 12:49] LABS: INR 1.07; PROTIME 13.9 Sec (12.2-14.2); PT RATIO 1.1
[2016-07-29 12:51] LABS: PARTIAL THROMBOPLASTIN TIME 34.9 Sec (25.0-35.0)
[2016-07-29] MEDS ORDERED: SOD CHLORIDE 0.45% 1,000 ML IV SCH (12:59)
[2016-07-29] MEDS ORDERED: ONDANSETRON 4 MG INJ IV PRN (13:00)
[2016-07-29] MEDS ORDERED: AL HYDROX/MG HYDROX/SIMETH 30 ML CUP PO PRN (13:00)
--- NOTE | 2016-07-29 13:13 | CONS ---
Date/Time of Note Date/Time of Note DATE: 07/29/16 TIME: 13:01 Assessment/Plan Assessment/Plan Chief Complaint/Hosp Course Impression: # CAD s/p PCI now with NSTEMI. no acute ekg changes, still off/on cp. echo reviewed, normal fxn. inf basal wma. 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 distal LCx stent with severe in stent restenosis, mid LAD moderate 50% disease. will need CABG evaluation - cont asa 81mg daily - stop plavix given possible need for CABG - cont statin -cont coreg, titrate for bp control - add imdur 30mg daily - add on troponin for today - sln as needed for further pain, if uncontrolled start nitro gtt - CABG evaluation- Dr. Cruz consulted. given had plavix today, if CABG candidate would likely need to wait prior to surgery, defer to [facility]. # HTN- uncontrolled - cont valsartan - switch coreg titrate - prn hydralazine po for sbp > 180 # DM2- per primary team # HLD- - on statin # smoking- cessation recommended d/w pt x 5 mins. understands risks of restenosis, recurrent acs if cont smoking Problems: Consultation Date/Type/Reason Admit Date/Time Jul 27, 2016 at 20:06 Initial Consult Date 07/28/16 Type of Consultation: Cardiology Referring Provider: LUZMA CARLSON MD 24 HR Interval Summary Free Text/Dictation reports still with on/off cp overnight. no sustained pain. no palp, dizziness, sob tele reviewed: NSR no events Detailed Summary Respiratory: no complaints Cardiovascular: chest pain Gastrointestinal: no complaints Exam/Review of Systems Vital Signs Vitals Vital Signs Date Time Temp Pulse Resp B/P Pulse Ox O2 Delivery O2 Flow Rate FiO2 07/29/16 08:57 81 07/29/16 08:02 98.2 20 138/96 94 07/27/16 22:41 Room Air Intake and Output 07/28/16 07/28/16 07/29/16 15:00 23:00 07:00 Intake Total 1800 ml 500 ml Balance 1800 ml 500 ml Exam Constitutional: alert, oriented Psych: nl mood/affect, no complaints Head: atraumatic, normocephalic Eyes: nl conjunctiva, nl lids ENMT: mucosa pink and moist, nl external ears & nose Neck: non-tender, supple, No jvd Respiratory: clear to auscultation, normal air movement Cardiovascular: nl pulses, regular rate and rhythm, No S3, No S4, No bruits, No edema, No irregular rhythm, No jugular venous distention (JVD), No systolic murmur Gastrointestinal: non-tender, soft Musculoskeletal: nl extremities to inspection, nl gait and stance Extremities: normal pulses, other (2+ r radial, normal allens, 2+ r femoral) 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 Skin: nl turgor Results Result Diagram: 07/29/16 0706 07/29/16 0706 Results 24 hrs Laboratory Tests Test 07/28/16 17:05 07/28/16 21:50 07/29/16 02:34 07/29/16 07:06 Bedside Glucose 233 H 223 H 114 Activated Partial Thromboplast Time 34.9 Anion Gap 13 Basophils # 0.0 Basophils % 0.5 Blood Urea Nitrogen 20 Calcium Level 8.8 Carbon Dioxide Level 26 Chloride Level 104 Creatinine 0.92 Eosinophils # 0.3 Eosinophils % 2.9 Glucose Level 183 Hematocrit 48.9 Hemoglobin 17.1 INR International Normalized Ratio 1.07 Lymphocytes # 2.5 Lymphocytes % 28.3 Mean Corpuscular Hemoglobin 34.2 H Mean Corpuscular Hemoglobin Concent 34.9 Mean Corpuscular Volume 97.9 Mean Platelet Volume 8.8 Monocytes # 0.5 Monocytes % 5.8 Neutrophils # 5.5 Neutrophils % 62.5 Nucleated Red Blood Cells # 0.0 Nucleated Red Blood Cells % 0.0 Platelet Count 157 Potassium Level 4.0 Prothrombin Time 13.9 Prothrombin Time Ratio 1.1 Red Blood Count 4.99 Red Cell Distribution Width 13.1 Sodium Level 139 White Blood Count 8.9 # Test 07/29/16 08:17 07/29/16 12:01 Bedside Glucose 191 142 Medications Medications Current Medications Aspirin (Halfprin) 81 mg DAILY PO Last administered on 07/29/16 08:28; Admin Dose 81 MG; Start 07/28/16 at 09:00 Clopidogrel Bisulfate (plaVIX) 75 mg DAILY PO Last administered on 07/29/16 08: 28; Admin Dose 75 MG; Start 07/28/16 at 09:00 Insulin Glargine (Lantus) 30 unit HS SC Last administered on 07/28/16 22:30; Admin Dose 30 UNIT; Start 07/27/16 at 21:00 Valsartan (Diovan) 160 mg DAILY PO Last administered on 07/29/16 08:29; Admin Dose 160 MG; Start 07/28/16 at 09:00 Atorvastatin Calcium (Lipitor) 40 mg HS PO Last administered on 07/28/16 22:27 ; Admin Dose 40 MG; Start 07/27/16 at 21:00 Morphine Sulfate (morphine) 2 mg Q4H PRN IV pain; Start 07/27/16 at 20:30 Ondansetron HCl (Zofran Inj) 4 mg Q6H PRN IV NAUSEA AND/OR VOMITING; Start 07/27 at 20:30 Docusate Sodium (Colace) 100 mg BID PO Last administered on 07/29/16 08:28; Admin Dose 100 MG; Start 07/27/16 at 21:00 Famotidine (Pepcid) 20 mg BID PO Last administered on 07/29/16 08:28; Admin Dose 20 MG; Start 07/27/16 at 21:00 Hydralazine HCl (Apresoline) 10 mg Q6H PRN IV sbp >160mmhg; Start 07/27/16 at 20 :30 Diagnostic Test (Pha) (Accucheck) 1 ea 02 XX ; Start 07/28/16 at 02:00 Miscellaneous Information 1 ea NOTE XX ; Start 07/27/16 at 21:00 Glucose (Glutose) 15 gm Q15M PRN PO DECREASED GLUCOSE; Start 07/27/16 at 21:00 Glucose (Glutose) 22.5 gm Q15M PRN PO DECREASED GLUCOSE; Start 07/27/16 at 21:00 Dextrose (D50w Syringe) 25 ml Q15M PRN IV DECREASED GLUCOSE; Start 07/27/16 at 21:00 Dextrose (D50w Syringe) 50 ml Q15M PRN IV DECREASED GLUCOSE; Start 07/27/16 at 21:00 Glucagon (Glucagen) 1 mg Q15M PRN IM DECREASED GLUCOSE; Start 07/27/16 at 21:00 Glucose (Glutose) 15 gm Q15M PRN BUCCAL DECREASED GLUCOSE; Start 07/27/16 at 21: 00 Carvedilol (Coreg) 6.25 mg BID PO Last administered on 07/29/16 08:29; Admin Dose 6.25 MG; Start 07/28/16 at 15:30 Enoxaparin Sodium (Lovenox) 95 mg Q12 SC Last administered on 07/29/16 08:29; Admin Dose 95 MG; Start 07/28/16 at 15:30 TORO AVELAR Jul 29, 2016 13:11
--- NOTE | 2016-07-29 13:19 | PN ---
Date/Time of Note Date/Time of Note DATE: 07/29/16 TIME: 13:18 Assessment/Plan VTE Prophylaxis VTE Prophylaxis Intervention: LMWH Lines/Catheters IV Catheter Type (from Nrs): Peripheral IV Assessment/Plan Assessment/Plan 1. acute NSTEMI with H/o CAD and Multiple PCI in past 2. Uncontrolled Diabetes type 2 3. Accelerated HTN 4. Ongoing tobacco abuse 6. Dyslipidemia PLAN: s/p Cardiology consult- echo showed normal fxn. inf basal wma. 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 distal LCx stent with severe in stent restenosis, mid LAD moderate 50% disease. will need CABG evaluation- from CT surgery has been consulted ASA, plavix, MTP, Lipitor NTG prn chest pain Lovenox for DVT prophylaxis Subjective 24 Hr Interval Summary Free Text/Dictation pt stable, seen by cardiology recommended CABG Exam/Review of Systems Vital Signs Vitals Vital Signs Date Time Temp Pulse Resp B/P Pulse Ox O2 Delivery O2 Flow Rate FiO2 07/29/16 08:57 81 07/29/16 08:02 98.2 20 138/96 94 07/27/16 22:41 Room Air Intake and Output 07/28/16 07/28/16 07/29/16 14:59 22:59 06:59 Intake Total 1800 ml 500 ml Balance 1800 ml 500 ml Exam Constitutional: alert, oriented, No distress Head: atraumatic, normocephalic Eyes: PERRL, No icteric ENMT: mucosa pink and moist Neck: non-tender, supple Respiratory: clear to auscultation, normal air movement Cardiovascular: regular rate and rhythm, No murmurs/extra sounds Gastrointestinal: bowel sounds, non-tender, soft Extremities: No edema Neurological: nl speech, nl strength, No confused Skin: No rash or lesions Results Result Diagram: 07/29/16 0706 07/29/16 0706 Results 24 hrs Laboratory Tests Test 07/28/16 17:05 07/28/16 21:50 07/29/16 02:34 07/29/16 07:06 Bedside Glucose 233 H 223 H 114 Activated Partial Thromboplast Time 34.9 Anion Gap 13 Basophils # 0.0 Basophils % 0.5 Blood Urea Nitrogen 20 Calcium Level 8.8 Carbon Dioxide Level 26 Chloride Level 104 Creatinine 0.92 Eosinophils # 0.3 Eosinophils % 2.9 Glucose Level 183 Hematocrit 48.9 Hemoglobin 17.1 INR International Normalized Ratio 1.07 Lymphocytes # 2.5 Lymphocytes % 28.3 Mean Corpuscular Hemoglobin 34.2 H Mean Corpuscular Hemoglobin Concent 34.9 Mean Corpuscular Volume 97.9 Mean Platelet Volume 8.8 Monocytes # 0.5 Monocytes % 5.8 Neutrophils # 5.5 Neutrophils % 62.5 Nucleated Red Blood Cells # 0.0 Nucleated Red Blood Cells % 0.0 Platelet Count 157 Potassium Level 4.0 Prothrombin Time 13.9 Prothrombin Time Ratio 1.1 Red Blood Count 4.99 Red Cell Distribution Width 13.1 Sodium Level 139 White Blood Count 8.9 # Test 07/29/16 08:17 07/29/16 12:01 Bedside Glucose 191 142 Medications Medications Current Medications Aspirin (Halfprin) 81 mg DAILY PO Last administered on 07/29/16 08:28; Admin Dose 81 MG; Start 07/28/16 at 09:00 Insulin Glargine (Lantus) 30 unit HS SC Last administered on 07/28/16 22:30; Admin Dose 30 UNIT; Start 07/27/16 at 21:00 Valsartan (Diovan) 160 mg DAILY PO Last administered on 07/29/16 08:29; Admin Dose 160 MG; Start 07/28/16 at 09:00 Atorvastatin Calcium (Lipitor) 40 mg HS PO Last administered on 07/28/16 22:27 ; Admin Dose 40 MG; Start 07/27/16 at 21:00 Morphine Sulfate (morphine) 2 mg Q4H PRN IV pain; Start 07/27/16 at 20:30 Docusate Sodium (Colace) 100 mg BID PO Last administered on 07/29/16 08:28; Admin Dose 100 MG; Start 07/27/16 at 21:00 Famotidine (Pepcid) 20 mg BID PO Last administered on 07/29/16 08:28; Admin Dose 20 MG; Start 07/27/16 at 21:00 Hydralazine HCl (Apresoline) 10 mg Q6H PRN IV sbp >160mmhg; Start 07/27/16 at 20 :30 Diagnostic Test (Pha) (Accucheck) 1 ea 02 XX ; Start 07/28/16 at 02:00 Miscellaneous Information 1 ea NOTE XX ; Start 07/27/16 at 21:00 Glucose (Glutose) 15 gm Q15M PRN PO DECREASED GLUCOSE; Start 07/27/16 at 21:00 Glucose (Glutose) 22.5 gm Q15M PRN PO DECREASED GLUCOSE; Start 07/27/16 at 21:00 Dextrose (D50w Syringe) 25 ml Q15M PRN IV DECREASED GLUCOSE; Start 07/27/16 at 21:00 Dextrose (D50w Syringe) 50 ml Q15M PRN IV DECREASED GLUCOSE; Start 07/27/16 at 21:00 Glucagon (Glucagen) 1 mg Q15M PRN IM DECREASED GLUCOSE; Start 07/27/16 at 21:00 Glucose (Glutose) 15 gm Q15M PRN BUCCAL DECREASED GLUCOSE; Start 07/27/16 at 21: 00 Al Hydrox/Mg Hydrox/Simethicone (Mag-Al Plus) 30 ml Q4H PRN PO GASTROINTESTINAL UPSET; Start 07/29/16 at 13:00 Ondansetron HCl 4 mg 4 mg Q4H PRN IV NAUSEA AND/OR VOMITING; Start 07/29/16 at 13:00 Sodium Chloride (1/2 NS) 1,000 ml @ 75 mls/hr [id number] IV ; Start 07/29/16 at 12: 59; Stop 07/29/16 at 16:58 Enoxaparin Sodium (Lovenox) 40 mg DAILY SC ; Start 07/30/16 at 09:00; Status UNV Carvedilol (Coreg) 9.325 mg BID PO ; Start 07/29/16 at 21:00; Status UNV LUZMA CARLSON MD Jul 29, 2016 13:19
--- NOTE | 2016-07-29 14:05 | OPR ---
DATE OF OPERATION: 07/29/2016 TOBACCO CONDITIONER: Reed Wright MD. REFERRING PHYSICIAN: Momo Melendez MD PREPROCEDURE DIAGNOSES: 1. Multivessel coronary artery disease. 2. Status post prior PCI. 3. Ischemic cardiomyopathy. 4. Non-ST elevation myocardial infarction. POSTPROCEDURE DIAGNOSIS: 1. Multivessel coronary artery disease with in-stent restenosis of previous left circumflex artery as well as HARMONICA MAKER of proximal RCA which is new. HISTORY: Mr. Owusu is a pleasant 61-year-old [place] man who presented to [facility] with non-ST elevation myocardial infarction. The patient has remote history of PCI in 2010 to the proximal LAD as well as in 2013 to the mid to distal LAD after he presented with HARMONICA MAKER as well as to the left circumflex artery with drug-eluting stents. The patient did well; however , now has recurrent chest pain, shortness of breath since April, and now with worsening pain with small non-ST elevation myocardial infarction. Echo obtained showing normal LV function but anterobasal wall motion abnormality. The patient brought to cardiac catheterization lab after informed consent was obtained, explaining full benefits and risks of procedure. The patient in agreement with the procedure. Informed consent was obtained with claims agent right of way present. PROCEDURE DESCRIPTION: Right wrist was prepped and draped in usual sterile fashion and anesthetized with 1% lidocaine solution. Intra-arterial nitroglycerin and verapamil were given. The patient had subq enoxaparin prior to arrival in catheterization lab. A 6-St Helenian Terumo Slender sheath was placed in the right radial artery without difficulty. Cineangiograms were then obtained of the left and right coronary arteries using a TIG 4.0 6-St Helenian diagnostic catheter. TIG catheter was advanced to the left ventricle and the pressures were obtained. Given multivessel coronary artery disease, in-stent restenosis as well as HARMONICA MAKER of RCA, decision was made to stop the procedure and refer patient for bypass surgery. All catheters and wires were removed. Hemostasis was obtained with TR band. COMPLICATIONS: No complications. ESTIMATED BLOOD LOSS: Less than 20 mL. SPECIMENS OBTAINED: None. FINDINGS: HEMODYNAMICS: LVEDP is 17 mmHg. CORONARY ANATOMY: 1. Left main: A large vessel with minimal luminal irregularities. 2. Left anterior descending artery: Proximal LAD with patent stent. No significant restenosis. There is a moderate 50% lesion in the mid LAD after the second diagonal artery. This is followed by patent stent, which is long from mid to distal LAD. This has mild in-stent restenosis of 30% and distal portion. TARIQ 3 flow. 3. Left circumflex: A large nondominant artery. The proximal circumflex has mild diffuse disease 20% to 30%. There is a high OM1/ramus artery with severe diffuse disease, 90%, unchanged from previous angiogram. There is an OM2 vessel which is average in size which has a 50 to 60% proximal stenosis. The distal circumflex is a large artery. It gives off an OM3 vessel. There is a large stent which has severe in-stent restenosis of 70% to 80%. 4. Right coronary artery: There is a proximal 100% chronic occlusion in after atrial branch. TARIQ 0 flow. Distal RCA fills via left to right collaterals with brisk filling of the PDA back to the distal RCA at the bifurcation of right posterolateral and right posterior descending artery bifurcation. SUMMARY: 1. Multivessel coronary artery disease with new HARMONICA MAKER of the proximal RCA, likely chronic given brisk collateral filling. 2. Severe in-stent restenosis of left circumflex artery stent placed in 2014. 3. Moderate stenosis of the mid LAD proximal to previously placed stent in 2014. 4. Mildly elevated left ventricular filling pressures. RECOMMENDATIONS: 1. Given in-stent restenosis of LCx stent as HARMONICA MAKER of the RCA, recommendation would be for consideration of bypass surgery. The patient is hesitant to proceed with bypass surgery; however, warrants at least an evaluation and discussion with CV surgery given long-term benefit and possibly incomplete revascularization with further attempted PCI. 2. Continue aspirin, statin, and beta andrew and titrate for improved blood pressure control. 3. Stop Plavix given possible need for CABG surgery. We will continue to follow. Dictated By: REED LI/CHRIS Conf#: [id number] DID#: [id number] DELVIN
[2016-07-29] MEDS: ATORVASTATIN 40 MG TAB PO SCH (20:32)
[2016-07-29] MEDS: hydrALAzine 20 MG INJ IV PRN (20:36)
[2016-07-29] MEDS: INSULIN GLARGINE [LANtus] 3 ML PEN SC SCH (20:37)
[2016-07-30] VITALS (16 sets, daily range): BP systolic 118–169; BP diastolic 69–106; PULSE 62–88; RESP 11–20
[2016-07-30] MEDS: ACCUCHECK AT 2AM (Patients on SS coverage) XX SCH (02:00)
--- NOTE | 2016-07-30 06:26 | PN ---
Date/Time of Note Date/Time of Note DATE: 07/30/16 TIME: 06:25 Assessment/Plan Lines/Catheters IV Catheter Type (from [facility]): Saline Lock Me[place] in Place (from [facility]): No Assessment/Plan Assessment/Plan cath reviewed, 3 V CAD. discussed with patient his options, he does not want surgery. Would proceed with PCI of LAD. Exam/Review of Systems Vital Signs Vitals Vital Signs Date Time Temp Pulse Resp B/P Pulse Ox O2 Delivery O2 Flow Rate FiO2 07/30/16 04:31 98.2 83 16 168/88 97 07/29/16 13:53 Room Air Intake and Output 07/29/16 07/29/16 07/30/16 15:00 23:00 07:00 Intake Total 1000 ml 450 ml Balance 1000 ml 450 ml Results Result Diagram: 07/29/16 0706 07/29/16 0706 GEE MONTANO MD Jul 30, 2016 06:26
[2016-07-30] MEDS: INSULIN ASPART [NOVOLOG] 3 ML PEN SC SCH ×4 (07:50→20:37)
[2016-07-30] MEDS: DOCUSATE SODIUM 100 MG CAP PO SCH ×2 (09:00→20:18)
[2016-07-30] MEDS ORDERED: ENOXAPARIN 100 MG/ML SYG SC SCH (09:00)
[2016-07-30] MEDS: ASPIRIN (EC) 81 MG TAB PO SCH ×2 (09:00→11:50)
[2016-07-30] MEDS: ENOXAPARIN 40 MG/0.4 ML SYG SC SCH (09:00)
[2016-07-30] MEDS: FAMOTIDINE 20 MG TAB PO SCH ×2 (09:43→20:19)
[2016-07-30] MEDS: VALSARTAN 160 MG TAB PO SCH (09:44)
--- NOTE | 2016-07-30 11:05 | PN ---
Date/Time of Note Date/Time of Note DATE: 07/30/16 TIME: 10:58 Assessment/Plan VTE Prophylaxis VTE Prophylaxis Intervention: LMWH Lines/Catheters IV C[facility] Type (from [facility]): Saline Lock Urinary Cath still in place: No Assessment/Plan Chief Complaint/Hosp Course Assessment/Plan 1. acute NSTEMI with H/o CAD and Multiple PCI in past Continue ASA, plavix, MTP, Lipitor Status post angiogram and finding of multivessel disease Recommend for CABG although the patient has refused surgical intervention/ CABG Cardiology has been consulted, plan for left heart catheterization/angiogram and possible angioplasty today. Notation: The risk and benefits of angioplasty has been discussed with the patient. Also patient understands extensive cardiac disease requires CABG although he continues to refuse surgical intervention at this time. 2. Uncontrolled Diabetes type 2 Continue insulin sliding scale, low-carb diet 3. Accelerated HTN Moderately controlled on medical management 4. Ongoing tobacco abuse Education was provided, recommended to quit smoking 6. Dyslipidemia Continue statin We will continue monitor patient closely for recommendation management treatment as per the clinical course Lovenox for DVT prophylaxis Problems: Subjective 24 Hr Interval Summary Free Text/Dictation Patient denies any chest pain or shortness of breath No nausea vomiting diarrhea N.p.o. for upcoming left heart catheterization Exam/Review of Systems Vital Signs Vitals Vital Signs Date Time Temp Pulse Resp B/P Pulse Ox O2 Delivery O2 Flow Rate FiO2 07/30/16 08:14 69 07/30/16 07:58 98.0 20 145/69 95 07/29/16 13:53 Room Air Intake and Output 07/29/16 07/29/16 07/30/16 15:00 23:00 07:00 Intake Total 1000 ml 450 ml Balance 1000 ml 450 ml Exam General: The patient is well-developed, Not in acute distress. HEENT: Atraumatic, normocephalic. The pupils are equal and round . Neck: Supple with full range of motion. Chest: Normal expansion of the thorax during inspiration Lungs: Clear to auscultation bilaterally Heart: Normal S1-S2, Regular rhythm and rate. Abdomen: Soft , nontender, nondistended , bowel sounds are present. Extremities: Normal to inspection, no edema no cyanosis Neurologic: Normal mental status,The patient is awake, alert and oriented . Results Result Diagram: 2/8/17 0706 2/8/17 0706 Results 24 hrs Laboratory Tests Test 07/29/16 12:01 07/29/16 17:17 07/29/16 20:13 07/30/16 07:45 Bedside Glucose 142 274 H 241 H 97 Medications Medications Current Medications Aspirin (Halfprin) 81 mg DAILY PO Last administered on 07/29/16 08:28; Admin Dose 81 MG; Start 07/28/16 at 09:00 Insulin Glargine (Lantus) 30 unit HS SC Last administered on 07/29/16 20:37; Admin Dose 30 UNIT; Start 07/27/16 at 21:00 Valsartan (Diovan) 160 mg DAILY PO Last administered on 07/30/16 09:44; Admin Dose 160 MG; Start 07/28/16 at 09:00 Atorvastatin Calcium (Lipitor) 40 mg HS PO Last administered on 07/29/16 20:32 ; Admin Dose 40 MG; Start 07/27/16 at 21:00 Morphine Sulfate (morphine) 2 mg Q4H PRN IV pain; Start 07/27/16 at 20:30 Docusate Sodium (Colace) 100 mg BID PO Last administered on 07/29/16 20:32; Admin Dose 100 MG; Start 07/27/16 at 21:00 Famotidine (Pepcid) 20 mg BID PO Last administered on 07/30/16 09:43; Admin Dose 20 MG; Start 07/27/16 at 21:00 Hydralazine HCl (Apresoline) 10 mg Q6H PRN IV sbp >160mmhg Last administered on 07/29/16 20:36; Admin Dose 10 MG; Start 07/27/16 at 20:30 Diagnostic Test (Pha) (Accucheck) 1 ea 02 XX ; Start 07/28/16 at 02:00 Miscellaneous Information 1 ea NOTE XX ; Start 07/27/16 at 21:00 Glucose (Glutose) 15 gm Q15M PRN PO DECREASED GLUCOSE; Start 07/27/16 at 21:00 Glucose (Glutose) 22.5 gm Q15M PRN PO DECREASED GLUCOSE; Start 07/27/16 at 21:00 Dextrose (D50w Syringe) 25 ml Q15M PRN IV DECREASED GLUCOSE; Start 07/27/16 at 21:00 Dextrose (D50w Syringe) 50 ml Q15M PRN IV DECREASED GLUCOSE; Start 07/27/16 at 21:00 Glucagon (Glucagen) 1 mg Q15M PRN IM DECREASED GLUCOSE; Start 07/27/16 at 21:00 Glucose (Glutose) 15 gm Q15M PRN BUCCAL DECREASED GLUCOSE; Start 07/27/16 at 21: 00 Al Hydrox/Mg Hydrox/Simethicone (Mag-Al Plus) 30 ml Q4H PRN PO GASTROINTESTINAL UPSET; Start 07/29/16 at 13:00 Ondansetron HCl (Zofran Inj) 4 mg Q4H PRN IV NAUSEA AND/OR VOMITING; Start 07/29 at 13:00 Carvedilol (Coreg) 9.375 mg BID PO Last administered on 07/30/16t 09:43; Admin Dose 9.375 MG; Start 07/29/16 at 21:00 Enoxaparin Sodium (Lovenox) 40 mg DAILY SC ; Start 07/30/16 at 09:00 RAYMOND BARBA MD Jul 30, 2016 11:05
--- NOTE | 2016-07-30 11:25 | CONS ---
Date/Time of Note Date/Time of Note DATE: 07/30/16 TIME: 11:19 Assessment/Plan Assessment/Plan Chief Complaint/Hosp Course Impression: # CAD s/p PCI now with NSTEMI. no acute ekg changes, still off/on cp. echo reviewed, normal fxn. inf basal wma. [facility] with multi-vessel disease GUNNER'S MATE M prox RCA with TARIQ 0 flow, fills via L-R collaterals. distal LCx stent with severe in stent restenosis, mid LAD moderate 50% disease. pt refused cabg. proceed with PCI with LCx PCI, FFR LAD, attempted PCI of RCA GUNNER'S MATE M. - cont asa 81mg daily - restart plavix 75mg daily - cont statin - cont coreg, titrate for bp control - labs pending - sln as needed for further pain, if uncontrolled start nitro gtt # HTN- uncontrolled - cont valsartan - switch coreg titrate - prn hydralazine po for sbp > 180 # DM2- per primary team # HLD- - on statin # smoking- cessation recommended d/w pt x 5 mins. understands risks of restenosis, recurrent acs if cont smoking Problems: Consultation Date/Type/Reason Admit Date/Time Jul 27, 2016 at 20:06 Initial Consult Date 07/28/16 Type of Consultation: Cardiology Referring Provider: LUZMA CARLSON MD 24 HR Interval Summary Free Text/Dictation no acute events. pt denies cp/sob. tele reviewed, nsr, no events. pt spoke with Dr. Cruz from [facility], patient explained risks/benefits of CABG vs. PCI. He declines CABG despite prison benefits over PCI. States he does not want to be cut open and his quality of life will be poor post op does not want to live that way he states. Pt aware of possibility of incomplete revascularization given GUNNER'S MATE M of RCA and risk of recurrent ISR. Pt verbalized understanding. Also explained with patient/sister and daughter via phone risks of procedure including but not limited to 2-4% risk of combined heart attack, stroke, , vessel injury/damage, kidney injury. they are aware of risks/benefits and elect to proceed with procedure today as scheduled. Detailed Summary Respiratory: no complaints Cardiovascular: no complaints Gastrointestinal: no complaints Exam/Review of Systems Vital Signs Vitals Vital Signs Date Time Temp Pulse Resp B/P Pulse Ox O2 Delivery O2 Flow Rate FiO2 07/30/16 08:14 69 07/30/16 07:58 98.0 20 145/69 95 07/29/16 13:53 Room Air Intake and Output 07/29/16 07/29/16 07/30/16 15:00 23:00 07:00 Intake Total 1000 ml 450 ml Balance 1000 ml 450 ml Exam Constitutional: alert, oriented Psych: nl mood/affect, no complaints Head: atraumatic, normocephalic Eyes: nl conjunctiva, nl lids ENMT: mucosa pink and moist, nl external ears & nose Neck: non-tender, supple, No jvd Respiratory: clear to auscultation, normal air movement Cardiovascular: nl pulses, regular rate and rhythm, No S3, No S4, No bruits, No edema, No irregular rhythm, No jugular venous distention (JVD), No systolic murmur Gastrointestinal: non-tender, soft Musculoskeletal: nl extremities to inspection, nl gait and stance Extremities: normal pulses, other (2+ r radial mild bruising 2+ R femoral artery Neurological: OUTREACH ASSISTANT II-XII intact Skin: nl turgor Results Result Diagram: 07/29/1670507/29/16705 Results 24 hrs Laboratory Tests Test 07/29/16 12:01 07/29/16 17:17 07/29/16 20:13 07/30/16 07:45 Bedside Glucose 142 274 H 241 H 97 Medications Medications Current Medications Aspirin (Halfprin) 81 mg DAILY PO Last administered on 07/29/16 08:28; Admin Dose 81 MG; Start 07/28/16 at 09:00 Insulin Glargine (Lantus) 30 unit HS SC Last administered on 07/29/16 20:37; Admin Dose 30 UNIT; Start 07/27/16 at 21:00 Valsartan (Diovan) 160 mg DAILY PO Last administered on 07/30/16 09:44; Admin Dose 160 MG; Start 07/28/16 at 09:00 Atorvastatin Calcium (Lipitor) 40 mg HS PO Last administered on 07/29/16 20:32 ; Admin Dose 40 MG; Start 07/27/16 at 21:00 Morphine Sulfate (morphine) 2 mg Q4H PRN IV pain; Start 07/27/16 at 20:30 Docusate Sodium (Colace) 100 mg BID PO Last administered on 07/29/16 20:32; Admin Dose 100 MG; Start 07/27/16 at 21:00 Famotidine (Pepcid) 20 mg BID PO Last administered on 07/30/16 09:43; Admin Dose 20 MG; Start 07/27/16 at 21:00 Hydralazine HCl (Apresoline) 10 mg Q6H PRN IV sbp >160mmhg Last administered on 07/29/16 20:36; Admin Dose 10 MG; Start 07/27/16 at 20:30 Diagnostic Test (Pha) (Accucheck) 1 ea 02 XX ; Start 07/28/16 at 02:00 Miscellaneous Information 1 ea NOTE XX ; Start 07/27/16 at 21:00 Glucose (Glutose) 15 gm Q15M PRN PO DECREASED GLUCOSE; Start 07/27/16 at 21:00 Glucose (Glutose) 22.5 gm Q15M PRN PO DECREASED GLUCOSE; Start 07/27/16 at 21:00 Dextrose (D50w Syringe) 25 ml Q15M PRN IV DECREASED GLUCOSE; Start 07/27/16 at 21:00 Dextrose (D50w Syringe) 50 ml Q15M PRN IV DECREASED GLUCOSE; Start 07/27/16 at 21:00 Glucagon (Glucagen) 1 mg Q15M PRN IM DECREASED GLUCOSE; Start 07/27/16 at 21:00 Glucose (Glutose) 15 gm Q15M PRN BUCCAL DECREASED GLUCOSE; Start 07/27/16 at 21: 00 Al Hydrox/Mg Hydrox/Simethicone (Mag-Al Plus) 30 ml Q4H PRN PO GASTROINTESTINAL UPSET; Start 07/29/16 at 13:00 Ondansetron HCl (Zofran Inj) 4 mg Q4H PRN IV NAUSEA AND/OR VOMITING; Start 07/29 at 13:00 Carvedilol (Coreg) 9.375 mg BID PO Last administered on 07/30/16 09:43; Admin Dose 9.375 MG; Start 07/29/16 at 21:00 Enoxaparin Sodium (Lovenox) 40 mg DAILY SC ; Start 07/30/16 at 09:00 TORO AVELAR Jul 30, 2016 11:25
[2016-07-30 11:36] LABS: BASOPHIL # 0.1 10^3/ul (0.0-0.1); EOSINOPHILS # 0.2 10^3/ul (0.0-0.5); EOSINOPHILS % 2.3 % (0.0-7.0); HEMATOCRIT 48.1 % (42.0-52.0); HEMOGLOBIN 16.9 g/dl (14.0-18.0); LYMPHOCYTES % 25.8 % (15.0-51.0); MEAN CORPUSCULAR HEMOGLOBIN 32.8 pg (29.0-33.0); MEAN CORPUSCULAR HGB CONC 35.1 g/dl (32.0-37.0); MEAN CORPUSCULAR VOLUME 93.4 fl (82.0-101.0); MONOCYTE # 0.6 10^3/ul (0.3-0.9); NEUTROPHILS % 63.6 % (39.0-77.0); PLATELET COUNT 203 10^3/UL (140-415); RED BLOOD COUNT 5.15 10^6/ul (4.70-6.10); RED CELL DISTRIBUTION WIDTH 11.9 % (11.5-14.5); WHITE BLOOD COUNT 7.9 10^3/ul (4.8-10.8)
[2016-07-30 11:45] LABS: POTASSIUM 5.1 mmol/L (3.5-5.1)
--- NOTE | 2016-07-30 11:46 | RADRPT ---
Vent Rate: 84 bpm RR Interval: 0 msec GA Interval: 170 msec QRS Duration: 92 msec QT Interval: 384 msec QTC Interval: 453 msec P-R-T [place]: 59 - 24 - 75 degrees Normal sinus rhythm Possible Left atrial enlargement Nonspecific T wave abnormality Abnormal ECG Electronically Signed By: Reed Wright [id number]
[2016-07-30 11:48] LABS: CREATININE 0.96 mg/dl (0.61-1.24)
[2016-07-30] MEDS: SOD CHLORIDE 0.9% 1,000 ML IV SCH ×2 (11:49→23:54)
[2016-07-30] MEDS: CLOPIDOGREL 75 MG TAB PO SCH (11:50)
[2016-07-30] MEDS ORDERED: IODIXANOL LOCM 100 ML BTL ONE (14:12)
[2016-07-30] MEDS ORDERED: HEPARIN 1000 UNITS/NS (A-LINE) 1,000 ML ONE (14:12)
[2016-07-30] MEDS ORDERED: LIDOCAINE 1% (MDV) 20 ML INJ ONE (14:12)
[2016-07-30] MEDS ORDERED: MIDAZOLAM 1 MG/ML 2 ML INJ ONE ×2 (14:13→15:59)
[2016-07-30] MEDS ORDERED: FENTAnyl 50 MCG/ML VIAL ONE (14:13)
[2016-07-30] MEDS ORDERED: HEPARIN 1000 UNITS/ML 10 ML INJ ONE (14:29)
[2016-07-30] MEDS ORDERED: BIVALIRUDIN 250MG /NS 50 ML 50 ML IVPB ONE (14:29)
[2016-07-30] MEDS ORDERED: ADENOSINE 90 MG in SOD CHLORIDE 0.9% 90 ML IV SCH (14:30)
[2016-07-30] MEDS ORDERED: NITROGLYCERIN (IC) 100 MCG/ML INJ ONE (15:01)
[2016-07-30] MEDS ORDERED: niCARdipine 25 MG INJ ONE (15:48)
[2016-07-30] MEDS ORDERED: ONDANSETRON 4 MG INJ ONE (15:59)
[2016-07-30] MEDS ORDERED: ATROPINE 1 MG/10 ML SYRINGE ONE (16:15)
[2016-07-30] MEDS ORDERED: SOD CHLORIDE 0.9% IV SCH (17:12)
--- NOTE | 2016-07-30 19:13 | OPR ---
DATE OF OPERATION: 07/30/2016 PROCEDURE PERFORMED 1. Left heart catheterization. 2. Percutaneous Coronary Intervention of left circumflex artery. 3. Fractional Flow [place] study of the mid left anterior descending artery. 4. PTCA alone of the proximal right coronary artery CUSTOMER SERVICE ASSOCIATE 5. Administration of moderate sedation for 135 minutes. Please see procedure log for full details of sedation. PREOPERATIVE DIAGNOSES: 1. Multivessel coronary artery disease. 2. Non-ST elevation myocardial infarction. 3. Ischemic cardiomyopathy. POSTOPERATIVE DIAGNOSES : 1. Multivessel coronary artery disease. 2. Status post percutaneous coronary intervention to left circumflex artery. 3. Normal FFR study of the mid LAD 0.94. 4. PTCA of the proximal RCA. 5. Unable to establish TARIQ 3 flow to the RCA. PROVIDER RELATIONS CONSULTANT: Reed Wright MD PRIMARY GIS ENGINEER: Karan Brizuela MD REFERRING PHYSICIAN: Eric Yip MD HISTORY: Mr. Owusu is a pleasant 61-year-old Indian man who presented to [facility] for non-ST elevation myocardial infarction and chest pain. The patient has extensive history of coronary artery disease and smoking as well as hypertension. The patient has not followed closely in cardiology clinic. The patient had a previous diagnostic left heart catheterization on 07/29/2016. Please see the report in the chart for further details. The patient essentially found to have new proximal right coronary CUSTOMER SERVICE ASSOCIATE , in-stent restenosis of the distal left circumflex stent and moderate disease in the mid LAD. Given these findings, the patient was referred to cardiac bypass surgery. After extensive discussion was between myself, cardiovascular surgeon and patient and his family, the patient is adamant that he does not want bypass surgery. The patient is aware of high chance of full vascularization, decreased mortality as well as decreased risk of revascularization with bypass over PCI; however, he still states he does not want CABG surgery. All risks and benefits of procedure were discussed with patient prior to procedure and informed consent was obtained. PROCEDURE DESCRIPTION: Right groin was prepped and draped in usual sterile fashion and anesthetized with 1% lidocaine solution. Under ultrasound guidance , a 6-Yemeni sheath was placed in the mid right common femoral artery using modified Seldinger technique. Right DELIVERY TABLE OPERATOR angiogram was obtained showing correct sheath placement in the mid right common femoral artery. The sheath was upsized to a 6-Yemeni 25 cm sheath, given tortuosity of the external iliac artery. The patient was given IV heparin and ACT was checked and confirmed to be in therapeutic range. The patient was given aspirin and Plavix prior to arrival in catheterization lab. An XB, 6-Yemeni guiding catheter was advanced to the left coronary artery and diagnostic angiograms were obtained. A Runthrough wire was advanced to the distal left circumflex artery without difficulty. A 2.5 x 12 mm Emerge balloon was then advanced to the distal left circumflex stent that was previously placed in 2013 at the area of in-stent restenosis. This was inflated to nominal pressures and then removed. A Resolute 3.5 x 12 mm stent was then advanced to the mid portion of the previously placed stent at the area of in- stent restenosis and inflated to high pressures. Stent balloon was removed and exchanged for a Euphora 3.75 x 8 mm noncompliant balloon which was inflated in serial fashion in new stent to high pressures. Balloon was removed and repeat angiograms were obtained showing good stent expansion and apposition with no evidence of complication. Wire and XB catheter were then removed and attention turned to the RCA vessel. Repeat ACT was checked and additional heparin was given. A 6-Yemeni JR4 guide was then used to engage the right coronary artery. Initially a 180 cm 0.014 inch Runthrough wire was attempted to advance past the proximal RCA CUSTOMER SERVICE ASSOCIATE; however , this would not advance. A 1.8 mm rapid exchange balloon was then advanced to the proximal RCA, to give extra support, but Runthrough still would not pass the proximal cap of CUSTOMER SERVICE ASSOCIATE. The balloon and wire were then removed and exchanged for a Metal Molder 50 190 cm 0.014 inch wire, which was then able to cross the proximal cap into the distal RCA. Repeat angiograms showed TARIQ 0 flow. The 1.2 x 8 mm balloon was then advanced over the Metal Molder wire and inflated in the proximal RCA. This established antegrade flow. However, there was evidence of heavy clot burden throughout the early portion of the distal RCA back to the proximal RCA. This was though to be a sub acute occlusion and likely chronic organized thrombus. Serial inflations were then performed of the proximal RCA using a 2.0 x 12 mm balloon and then a 2.5 x 12 mm balloon. Repeat angiograms again showed persistent heavy clot burden. The patient was started on Integrilin drip and bolus. The patient was given intracoronary nicardipine as well. Decision was made to proceed with coronary aspiration thrombectomy with 4-Yemeni AngioJet system. The AngioJet was then advanced over the Metal Molder wire to the proximal RCA. However, this would not pass the bend in the distal part of the proximal RCA. The AngioJet was removed; however, this caused disengagement of the coronary guide and loss of wire from the distal RCA. Metal Molder wire and AngioJet were removed and the guide was then used to reengage the right coronary. The 190 cm Metal Molder wire was then advanced to the distal RCA again. Additional PTCA was performed with a 3.0 x 12 mm Emerge balloon in the proximal RCA in sterile fashion. Repeat angiograms did show TARIQ 0 flow in the distal portion of the proximal RCA proximal to mid junction. It was unclear if this was related to dissection versus a clot thrombus and additional Metal Molder wire was attempted to advance the distal RCA. However, this was then removed. The original Metal Molder wire was then docked with extension wire and a 1.2 x 8 mm over the wire balloon was advanced to the distal RCA. Wire removed and aspiration performed through OTW ballon with bloody return and distal injection showed wire in the true lumen of distal RCA which had competitive filling from the left to right collaterals. At this time, it was thought that the TARIQ 0 flow was due to likely heavy clot burden in the mid RCA and further attempt at aspiration thrombectomy was performed with an aspiration catheter; however, this would not advance and at this point it was felt that further attempted PCI of this mid RCA would jeopardize collateral flow and further attempts at PCI were aborted. All catheters and wires were then removed and final angiogram was obtained showing improvement of flow to the distal portion of the proximal RCA. However after proximal RCA there was TARIQ 0 flow. The patient was chest pain free and hemodynamically stable. The JR catheter and wire was removed. The XB catheter was then readvanced to the left coronary artery to confirm presence of a collateral flow. Repeat angiograms did show continued collateral flow from the left to right coronary. A [place] 0.014 inch coronary FFR wire was then advanced to the LAD artery and IV adenosine infusion started at 180mcg/ kg/min infused for 2.5 minutes. The lowest FFR value of the mid LAD lesion was 0.94. At this time, it was felt to be safe to defer PCI of LAD. The XB catheter was then withdrawn and advanced to the left ventricle. Pressures were obtained then the XB catheter was removed. At this point, procedure was concluded. All wires and catheters were removed. The long 25 cm 6-Yemeni sheath was then exchanged for a short 13 cm 6-Yemeni sheath and an Angio-Seal 6- Yemeni VIP device was used to obtain hemostasis of the right common femoral artery successfully. Patient again was without chest pain and remained hemodynamically stable. Estimated blood loss for the procedure was less than 75 mL. There were no immediate complications. However, we were unable to establish TARIQ 3 flow past the proximal RCA vessel and remained CUSTOMER SERVICE ASSOCIATE in the mid RCA. FINDINGS: HEMODYNAMICS: Please see procedure log for further details. CORONARY ANATOMY: Unchanged form catheterization report from 07/29/2016, diagnostic. Please see this report for further details of coronary anatomy. PERCUTANEOUS CORONARY INTERVENTION LESION DESCRIPTION: 1. Distal left circumflex: Prestenosis is 90% in-stent, poststenosis 0%. Pre- TARIQ flow 3, post-TARIQ flow 3. Status post percutaneous coronary intervention with a Resolute 3.5 x 12 mm stent within the previous stent. Post-dilated with Euphora 3.75 x 8 mm NC balloon. 2. Proximal RCA prestenosis 100%. Poststenosis 100%. PreTIMI flow 0, post- TARIQ flow 0. Successful percutaneous transluminal coronary angioplasty with improvement in flow in the distal subsection of the proximal RCA. However, continued CUSTOMER SERVICE ASSOCIATE with TARIQ 0 flow at the distal portion to the mid RCA. Distal RCA fills via left to right collaterals. 4. FFR of the LAD with adenosine infusion IV infusion and FFR value of 0.94. CONCLUSIONS: 1. Successful PCI of left circumflex artery in-stent restenosis. 2. Unsuccessful PTCA of the proximal RCA CUSTOMER SERVICE ASSOCIATE. 3. FFR value of the proximal LAD greater 0.94, within defer PCI range ( greater than 0.80). RECOMMENDATIONS: 1. Continued post-procedure care and close monitoring for arrhythmia, complications, procedural access site bleeding. 2. Continue aspirin 81 mg daily indefinitely. 3. Continue Plavix 75 mg daily indefinitely. 4. Continue Statin. 5. Maximal CAD RF modification with improved bp control 6. Continued titration of antianginals for any residual chest pain This was discussed with patient and family through test borer. Dictated By: REED LI/CHRIS Conf#: [id number] [facility]#: [id number] MTDD
[2016-07-30] MEDS: ATORVASTATIN 40 MG TAB PO SCH (20:19)
[2016-07-30] MEDS: INSULIN GLARGINE [LANtus] 3 ML PEN SC SCH (20:28)
[2016-07-30] MEDS: hydrALAzine 20 MG INJ IV PRN (23:54)
[2016-07-31] VITALS (17 sets, daily range): BP systolic 122–151; BP diastolic 73–97; PULSE 78–91; RESP 11–20
[2016-07-31] MEDS: ACCUCHECK AT 2AM (Patients on SS coverage) XX SCH (02:00)
--- NOTE | 2016-07-31 07:21 | CONS ---
Date/Time of Note Date/Time of Note DATE: 07/31/16 TIME: 07:14 Assessment/Plan Assessment/Plan Chief Complaint/Hosp Course Impression: # CAD s/p PCI now with NSTEMI. [facility] with multi-vessel disease PALEOBOTANIST prox RCA with TARIQ 0 flow, fills via L-R collaterals. distal LCx stent with severe in stent restenosis, mid LAD moderate 50% disease. pt refused cabg. s/p PCI to LCx PCI, FFR LAD 0.94 (defer pci), attempted PTCA of RCA PALEOBOTANIST unable to open 2/2 heavy thrombus burden. - cont asa 81mg daily - cont plavix 75mg daily - cont statin - cont coreg, increase to 12.5mg po bid - cont valsartan - add low dose imdur - ambulate patient, if stable no significant cp/sob ok to d/c to home with close outpatient f/u # R groin bruit- s/p closure device. minimal ttp, no hematoma on exam, pt stable - obtain R groin u/s to r/o pseudoaneurysm post procedure # HTN- improved, episodes of elevated bp - cont valsartan - increase coreg to 12.5mg po bid - add imdur # ischemic cardiomyopathy- inferior wma, overall normal ef. - cont bb/acei - f/u as outpt # DM2- per primary team # HLD- - on statin # smoking- cessation recommended d/w pt x 5 mins. understands risks of restenosis, recurrent acs if cont smoking Problems: Consultation Date/Type/Reason Admit Date/Time Jul 27, 2016 at 20:06 Initial Consult Date 07/28/16 Type of Consultation: Cardiology Referring Provider: LUZMA CARLSON MD 24 HR Interval Summary Free Text/Dictation no acute events. pt stable post procedure. had elevated bp, now controlled. states mild cp with elevated bp, resolved. no recurrence. no sob. no palpitations. EKG reviewed: post procedure, nsr, lateral twi improved. no sravan Tele reviewed: no events. nsr Detailed Summary Respiratory: no complaints Cardiovascular: chest pain Gastrointestinal: no complaints Exam/Review of Systems Vital Signs Vitals Vital Signs Date Time Temp Pulse Resp B/P Pulse Ox O2 Delivery O2 Flow Rate FiO2 07/31/16 05:00 78 15 125/74 95 Room Air 07/31/16 04:00 98.0 Intake and Output 07/30/16 07/30/16 07/31/16 15:00 23:00 07:00 Intake Total 615 ml 625 ml Output Total 350 ml 1200 ml Balance 265 ml -575 ml Exam Constitutional: alert, oriented Psych: nl mood/affect, no complaints Head: atraumatic, normocephalic Eyes: nl conjunctiva, nl lids ENMT: mucosa pink and moist, nl external ears & nose Neck: non-tender, supple, No jvd Respiratory: clear to auscultation, normal air movement Cardiovascular: nl pulses, regular rate and rhythm, No S3, No S4, No bruits, No edema, No irregular rhythm, No jugular venous distention (JVD), No systolic murmur Gastrointestinal: non-tender, soft Musculoskeletal: nl extremities to inspection, nl gait and stance Extremities: Rgroin dressing in place, minimal ttp. 2+ DP, 2+ femoral. + soft bruit r groin Neurological: STULL HEWER II-XII intact Skin: nl turgor Results Result Diagram: 07/30/16 1045 07/30/16 1045 Results 24 hrs Laboratory Tests Test 07/30/16 07:45 07/30/16 10:45 07/30/16 12:01 07/30/16 17:50 Bedside Glucose 97 257 H 159 Anion Gap 18 H Basophils # 0.1 Basophils % 1.0 Blood Urea Nitrogen 20 Calcium Level 9.0 Carbon Dioxide Level 24 Chloride Level 99 Creatinine 0.96 Eosinophils # 0.2 Eosinophils % 2.3 Glucose Level 267 H Hematocrit 48.1 Hemoglobin 16.9 Lymphocytes # 2.0 Lymphocytes % 25.8 Mean Corpuscular Hemoglobin 32.8 Mean Corpuscular Hemoglobin Concent 35.1 Mean Corpuscular Volume 93.4 Mean Platelet Volume 10.0 Monocytes # 0.6 Monocytes % 7.0 Neutrophils # 5.0 Neutrophils % 63.6 Nucleated Red Blood Cells # 0.0 Nucleated Red Blood Cells % 0.0 Platelet Count 203 Potassium Level 5.1 Red Blood Count 5.15 Red Cell Distribution Width 11.9 Sodium Level 136 Troponin I 0.139 *H White Blood Count 7.9 Test 07/30/16 20:22 07/31/16 01:57 Bedside Glucose 299 H 231 H Medications Medications Current Medications Aspirin (Halfprin) 81 mg DAILY PO Last administered on 07/30/16 11:50; Admin Dose 81 MG; Start 07/28/16 at 09:00 Insulin Glargine (Lantus) 30 unit HS SC Last administered on 07/30/16 20:28; Admin Dose 30 UNIT; Start 07/27/16 at 21:00 Valsartan (Diovan) 160 mg DAILY PO Last administered on 07/30/16 09:44; Admin Dose 160 MG; Start 07/28/16 at 09:00 Atorvastatin Calcium (Lipitor) 40 mg HS PO Last administered on 07/30/16 20:19 ; Admin Dose 40 MG; Start 07/27/16 at 21:00 Morphine Sulfate (morphine) 2 mg Q4H PRN IV pain; Start 07/27/16 at 20:30 Docusate Sodium (Colace) 100 mg BID PO Last administered on 07/30/16 20:18; Admin Dose 100 MG; Start 07/27/16 at 21:00 Famotidine (Pepcid) 20 mg BID PO Last administered on 07/30/16 20:19; Admin Dose 20 MG; Start 07/27/16 at 21:00 Hydralazine HCl (Apresoline) 10 mg Q6H PRN IV sbp >160mmhg Last administered on 07/30/16 23:54; Admin Dose 10 MG; Start 07/27/16 at 20:30 Diagnostic Test (Pha) (Accucheck) 1 ea 02 XX ; Start 07/28/16 at 02:00 Miscellaneous Information 1 ea NOTE XX ; Start 07/27/16 at 21:00 Glucose (Glutose) 15 gm Q15M PRN PO DECREASED GLUCOSE; Start 07/27/16 at 21:00 Glucose (Glutose) 22.5 gm Q15M PRN PO DECREASED GLUCOSE; Start 07/27/16 at 21:00 Dextrose (D50w Syringe) 25 ml Q15M PRN IV DECREASED GLUCOSE; Start 07/27/16 at 21:00 Dextrose (D50w Syringe) 50 ml Q15M PRN IV DECREASED GLUCOSE; Start 07/27/16 at 21:00 Glucagon (Glucagen) 1 mg Q15M PRN IM DECREASED GLUCOSE; Start 07/27/16 at 21:00 Glucose (Glutose) 15 gm Q15M PRN BUCCAL DECREASED GLUCOSE; Start 07/27/16 at 21: 00 Al Hydrox/Mg Hydrox/Simethicone (Mag-Al Plus) 30 ml Q4H PRN PO GASTROINTESTINAL UPSET; Start 07/29/16 at 13:00 Ondansetron HCl (Zofran Inj) 4 mg Q4H PRN IV NAUSEA AND/OR VOMITING; Start 07/29 at 13:00 Carvedilol (Coreg) 9.375 mg BID PO Last administered on 07/30/16 20:19; Admin Dose 9.375 MG; Start 07/29/16 at 21:00 Enoxaparin Sodium (Lovenox) 40 mg DAILY SC ; Start 07/30/16 at 09:00 Clopidogrel Bisulfate 75 mg 75 mg DAILY PO Last administered on 07/30/16 11:50 ; Admin Dose 75 MG; Start 07/30/16 at 11:30 Sodium Chloride (NS) 1,000 ml @ 75 mls/hr [id number] IV Last administered on 23:54; Admin Dose 75 MLS/HR; Start 07/30/16 at 11:25 TORO VAELAR Jul 31, 2016 07:21
[2016-07-31] MEDS: INSULIN ASPART [NOVOLOG] 3 ML PEN SC SCH ×3 (07:35→17:12)
[2016-07-31] MEDS: DOCUSATE SODIUM 100 MG CAP PO SCH (08:16)
[2016-07-31] MEDS: ASPIRIN (EC) 81 MG TAB PO SCH (08:16)
[2016-07-31] MEDS: VALSARTAN 160 MG TAB PO SCH (08:16)
[2016-07-31] MEDS: FAMOTIDINE 20 MG TAB PO SCH (08:17)
[2016-07-31] MEDS: CLOPIDOGREL 75 MG TAB PO SCH (08:17)
[2016-07-31] MEDS: ENOXAPARIN 40 MG/0.4 ML SYG SC SCH (08:22)
[2016-07-31] MEDS ORDERED: ISOSORBIDE MONONITRATE(SR)30 MG TAB PO SCH (09:00)
--- NOTE | 2016-07-31 09:12 | PDOCDIS ---
Discharge Instructions CONDITION Patient Condition: Good HOME CARE INSTRUCTIONS: Special Diet: LOW FAT/CHOLES/ Low carb ACTIVITY: Activity Restrictions: Slowly Increase Activity Rest between Activity FOLLOW UP/APPOINTMENTS Appointments Follow up with cardiology as out-pt Follow up with PCP as out-pt follow up endocrinology as out-pt RAYMOND BARBA MD Jul 31, 2016 09:12
[2016-07-31] MEDS ORDERED: CARV12.579 PO (09:16)
[2016-07-31] MEDS ORDERED: ASPI-535 PO (09:16)
[2016-07-31] MEDS ORDERED: VALS160T20 PO (09:16)
[2016-07-31] MEDS ORDERED: CLOP75TA27 PO (09:16)
[2016-07-31] MEDS ORDERED: FAMO20TA18 PO (09:16)
[2016-07-31] MEDS ORDERED: NIT4 SL (09:16)
[2016-07-31] MEDS ORDERED: ATOR40TA68 PO (09:16)
[2016-07-31] MEDS ORDERED: ISOS30TA5 PO (09:16)
[2016-07-31] MEDS ORDERED: MTF1000T PO (09:18)
--- NOTE | 2016-07-31 16:41 | RADRPT ---
PROCEDURE: Right groin ultrasound CLINICAL INDICATION: To evaluate for possible pseudoaneurysm. Status post angioplasty. TECHNIQUE: Sonographic evaluation of the right groin was performed. Iglesias scale and color imaging was obtained. Evaluation of the right groin was performed. Images were reviewed on a high-resoluti on PACS workstation. COMPARISON: None available FINDINGS: No evidence of right groin pseudoaneurysm is noted. IMPRESSION: 1. No evidence of right groin pseudoaneurysm. RPTAT: QQ .Valery Marquez MD, Date Time Electronically viewed and signed by .Valery Marquez MD, MD on 07/31/2016 16:40 .N/
--- NOTE | 2016-07-31 17:18 | RADRPT ---
Vent Rate: 63 bpm RR Interval: 0 msec MI Interval: 180 msec QRS Duration: 94 msec QT Interval: 440 msec QTC Interval: 450 msec P-R-T [place]: 30 - 15 - -79 degrees Normal sinus rhythm ST amp; T wave abnormality, consider inferolateral ischemia Abnormal ECG Electronically Signed By: Reed Wright [id number]
--- NOTE | 2016-07-31 17:20 | RADRPT ---
Vent Rate: 75 bpm RR Interval: 0 msec OK Interval: 172 msec QRS Duration: 92 msec QT Interval: 398 msec QTC Interval: 444 msec P-R-T [place]: 49 - 43 - 0 degrees Sinus rhythm with premature atrial complexes T wave abnormality, consider inferolateral ischemia Abnormal ECG Electronically Signed By: Reed Wright [id number]
--- NOTE | 2016-08-01 07:57 | DS ---
DATE OF ADMISSION: 07/27/2016 DATE OF DISCHARGE: 07/31/[address] Avelar. PROCEDURES: 1. On 07/29/2016, angioplasty with finding of multivessel coronary artery disease with the finding of left anterior descending artery, moderate 50% lesion in mid LAD, mild in-stent restenosis of 30% distal portion. Left circumflex, 20% to 30% and there is a large stent which has severe in-stent r estenosis of 70 to 80% right coronary artery ____ 100% chronic occlusion. 2. Left heart catheterization and percutaneous coronary intervention of the left circumflex artery, PTCA alone of the proximal right coronary artery on 07/22/2016. DISCHARGE DIAGNOSES: 1. Multivessel coronary artery disease. The patient had refused CABG, was seen and evaluated by ca rdiologist. Patient is status post PTCA of proximal right coronary artery. Continue aspirin, Plavi x, beta andrew, statin. 2. Non-ST elevation myocardial infarction as above. 3. Ischemic cardiomyopathy. Continue beta andrew. 4. Valsartan. 5. Diabetes mellitus on Lantus and metformin. 6. Essential hypertension. Continue medical management. 7. Dyslipidemia. The patient's statin has been changed to atorvastatin 40 mg p.o. at bedtime. 8. Nicotine dependency. Education was provided. Patient has been instructed to stop smoking. MEDICATIONS: 1. Atorvastatin 40 mg. 2. Coreg 12.5 mg b.i.d. 3. Famotidine 20 mg. 4. Isosorbide mononitrate 30 mg. 5. Metformin 1000 mg b.i.d. 6. Nitroglycerin 0.4 mg 7. Valsartan 160 mg. 8. Aspirin 81 mg. 9. Plavix 75 mg 10. Lantus 30 units. ALLERGIES: NO KNOWN DRUG ALLERGIES. HOSPITAL COURSE: This is a 61-year-old gentleman with past medical history of hypertension, coronar y artery disease status post multiple PCI, diabetes mellitus, dyslipidemia, morbid obesity, and anastasiia latia dependency who currently continues to smoke, who presents to [facility] to having intermittent left-sided chest pain that has progressed, constant, associated with sagar e numbness and occasional shortness of breath has been worsening. The patient presented to [facility] emergency room on 07/27/2016 with response to nitroglycerin therapy. Continued on aspir in, Plavix and was seen and evaluated by cardiology. A 2D echocardiogram was obtained which demonst rated normal left ventricle systolic function, normal left ventricle cavity size, mild concentric le ft ventricular hypertrophy, ejection fraction visually estimated at 55%, stage I diastolic dysfuncti on, left ventricle hypokinetic process, mild hypokinesis of the inferior base. Normal right ventric le size. Normal right ventricular systolic function. Upper limit of normal left atrial size. No s ignificant aortic stenosis insufficiency, no vegetation, mass or thrombi was seen. Patient was then taken for left heart catheterization and was found to have multivessel coronary artery disease with occlusion of the left anterior descending artery 50%, left circumflex at the site of the stent 70 to 80%, and right coronary artery 100%. Cardiothoracic surgeon was consulted and the patient was seen and evaluated by him and was recommended to proceed with surgical intervention such as CABG, al though the patient refused this procedure and wanted to proceed with intervention such as a PCI. Th erefore, on 07/30/2016, the patient was taken back to the flue dust laborer for left heart catheterization an d PCI of the right coronary artery, which he tolerated the procedure well and was taken to ICU. He was continued on aspirin, Plavix, beta andrew, statin. His blood pressure has been well controlled . His metformin has been discontinued at this time secondary to IV contrast during the left heart c atheterization. He has been continued on Lantus. At this time, patient denies any chest pain, shor tness of breath, nausea, vomiting, diarrhea. I had a lengthy talk with him regarding his nicotine h abits and his history of smoking. At this time, the patient understands the risk and he is planning to discontinue smoking. He also has office ____regarding in case if he has any chest pain or short ness of breath and is to return to the emergency room and be seen and evaluated by the ER physician and possibly need prior intervention such as CABG at this time. He has refused any surgical interve ntion at this time. He is in fair to good condition to be discharged home with close followup with cardiology, primary care doctor and drug enforcement administration agent as outpatient. Temperature 98, pulse 83, respir ation rate 16, blood pressure 122/___, oxygen saturation 96%. LABORATORY: WBC 7.9, hemoglobin 16.9, hematocrit 48.1, platelets 203, glucose ranged between 113 to 231. Sodium 136, potassium 5.1, chloride 99, bicarbonate 24, BUN 20, creatinine is 0.96, calcium 9 .0, hemoglobin 8.8. Dictated By: RAYMOND BARBA MD PN/NTS Conf#: [id number] DID#: [id number] CC: TORO AVELAR MD;*End*
== END 2016-07-31 17:40 | disposition home or self-care (01) | DRG 247 ==
LOC: E/R 17:19 → MS4 20:06 → ICU 07-30 14:30
PROVIDERS: ADMIT Family Medicine; ATTEND Family Medicine
PROC: 4A023N7 Measurement of Cardiac Sampling and Pressure, Left Heart, Percutaneous Approach (ICD-10-PCS; 2016-07-29)
PROC: B2011ZZ Plain Radiography of Multiple Coronary Arteries using Low Osmolar Contrast (ICD-10-PCS; 2016-07-29)
PROC: B2051ZZ Plain Radiography of Left Heart using Low Osmolar Contrast (ICD-10-PCS; 2016-07-29)
PROC: 027034Z Dilation of Coronary Artery, One Artery with Drug-eluting Intraluminal Device, Percutaneous Approach (ICD-10-PCS; principal; 2016-07-30)
PROC: 02703ZZ Dilation of Coronary Artery, One Artery, Percutaneous Approach (ICD-10-PCS; 2016-07-30)
PROC: 02C03ZZ Extirpation of Matter from Coronary Artery, One Artery, Percutaneous Approach (ICD-10-PCS; 2016-07-30)
PROC: 4A033BC Measurement of Arterial Pressure, Coronary, Percutaneous Approach (ICD-10-PCS; 2016-07-30)
DX: I21.4 Non-ST elevation (NSTEMI) myocardial infarction (principal); T82.855A Stenosis of coronary artery stent, initial encounter; I25.82 Chronic total occlusion of coronary artery; E11.65 Type 2 diabetes mellitus with hyperglycemia; I10 Essential (primary) hypertension; Z72.0 Tobacco use; E78.5 Hyperlipidemia, unspecified; Z71.6 Tobacco abuse counseling; I25.2 Old myocardial infarction; I25.10 Atherosclerotic heart disease of native coronary artery without angina pectoris; I25.5 Ischemic cardiomyopathy
CPT/HCPCS: 36415; 71010; 80048; 80053; 80061; 80076; 82550; 82553; 82962; 83036; 83690; 83735; 83880; 84443; 84484; 85025; 85610; 85730; 92920; 93005; 93306; 93458; 93571; 93926; 96372; 96374; 96375; C1725; C1757; C1760; C1769; C1874; C1887; C1894; C9600; J0153; J0360; J0461; J0583; J1644; J1650; J1815; J1885; J2250; J2270; J2405; J3010; J7030; Q9967

== ENCOUNTER 2017-08-26 06:27 | Day surgery (SDC) | END 2017-08-26 13:20 | disposition home or self-care (01) ==

== ENCOUNTER 2017-09-12 17:36 | Inpatient (IN) | END 2017-09-22 13:09 | disposition home health service (06) | DRG 235 ==